=== PATIENT | male | born 1985 | race Caucasian/White ===

== ENCOUNTER 2017-01-02 19:06 | Emergency (ER) | payer MEDICARE, OTHER ==
[2017-01-02 19:30] VITALS: BP 136/86; PULSE 85; RESP 18; TEMP 97.2
[2017-01-02] MEDS ORDERED: DIPH,PERTUS(ACELL)TETVAC-LF 0.5 ML VIAL IM ONE (19:39)
--- NOTE | 2017-01-02 20:09 | ED ---
Wound/Laceration HPI - General Chief Complaint: Wound/Laceration Stated Complaint: laceration Time Seen by Provider: 01/02/17 19:33 Source: patient, RN notes reviewed Mode of arrival: ambulatory Limitations: no limitations - History of Present Illness Initial Comments: Patient is a 31-year-old male presents to the emergency room for evaluation of left thumb laceration. Patient states he was chopping wood with an ax and accidentally cut his finger. Patient denies wearing gloves. Patient states she 's not sure in his last tetanus vaccine was. Patient states having 7 out of 10 pain at the laceration site. Patient denies being on any blood thinners. Patient denies any other injuries during incident. Patient has a numbness or tingling the tip of his finger. Patient states he feels full range of motion of his thumb. - Related Data Home Medications Medication Instructions Recorded Confirmed Omeprazole [PriLOSEC] 20 mg PO DAILY 05/14/15 08/09/16 QUEtiapine FUMARATE 200 mg PO HS 05/14/15 08/09/16 Sertraline [Zoloft] 100 mg PO DAILY 05/14/15 08/09/16 carBAMazepine [Carbatrol] 200 mg PO HS 05/14/15 08/09/16 Gabapentin [Neurontin] 200 mg PO BID@0900,2100 12/23/15 08/09/16 Gabapentin [Neurontin] 100 mg PO DAILY@1400 04/21/16 08/09/16 Hydrochlorothiazide [Hydrodiuril] 50 mg PO DAILY 04/21/16 08/09/16 Methocarbamol [Robaxin] 500 mg PO TID 04/21/16 08/09/16 Previous Rx's Medication Instructions Recorded Diazepam [Valium] 5 mg PO BID #10 tab 08/13/15 Hydrocodone/Acetaminophen [Wing 1 tab PO Q6HR PRN #20 tab 07/25/16 5-325] Indomethacin [Indocin] 50 mg PO TID #30 capsule 07/25/16 HYDROcodone/APAP 5-325MG [Wing 1 - 2 tab PO Q4H PRN #20 tab 08/09/16 5-325] Indomethacin [Indocin] 50 mg PO TID #30 capsule 08/09/16 predniSONE 50 mg PO DAILY #7 tab 08/09/16 Allergies Allergy/AdvReac Type Severity Reaction Status Date / Time No Known Allergies Allergy Verified 01/02/17 19:30 Review of Systems ROS Statement: Those systems with pertinent positive or pertinent negative responses have been documented in the HPI. ROS Other: All systems not noted in ROS Statement are negative. Past Medical History Past Medical History: Hypertension, Seizure Disorder Additional Past Medical History / Comment(s): TRAUMATIC BRAIN INJURY; "Heart Arrhythmia - skips beats"; Nerve damage - left hand and leg. History of Any Multi-Drug Resistant Organisms: MRSA Date of last positivie culture/infection: 2010 MDRO Source:: RIGHT TOE Past Surgical History: No Surgical Hx Reported Past Psychological History: PTSD Smoking Status: Former smoker Past Alcohol Use History: None Reported Past Drug Use History: None Reported General Exam - General Exam Comments Initial Comments: Sitting in exam room in no acute distress. Limitations: no limitations General appearance: alert, in no apparent distress Head exam: Present: atraumatic, normocephalic, normal inspection Eye exam: Present: normal appearance ENT exam: Present: normal exam Neck exam: Present: normal inspection Respiratory exam: Absent: respiratory distress Left Hand Wrist exam: Present: full ROM, laceration (2 cm laceration on the lateral portion of the distal phalanx ) Neuro motor exam: Present: wrist extension intact, thumb opposition intact, thumb IP flexion intact, thumb adduction intact, fingers 2-5 abduction intact Vascular: Present: normal capillary refill (Capillary refill less than 2 seconds ), radial pulse (2+), ulnar pulse (2+) Back exam: Present: normal inspection Neurological exam: Present: alert, oriented X3, CN II-XII intact, normal gait Psychiatric exam: Present: normal affect, normal mood Skin exam: Present: warm, dry, normal color. Absent: rash Course Vital Signs 01/02/17 19:25 Temperature 97.2 F L Pulse Rate 85 Respiratory 18 Rate Blood Pressure 136/86 O2 Sat by Pulse 95 Oximetry Procedures - Laceration Laceration #1 Consent Obtained: verbal consent Indication: laceration Site: other (left thumb) Size (cm): 2 Description: linear, flap Depth: simple, single layer Anesthetic Used: lidocaine 1% Anesthesia Technique: nerve block Amount (mls): 3 Pre-repair: irrigated extensively Type of Sutures: nylon Size of Sutures: 5-0 Number of Sutures: 8 Technique: simple, interrupted Patient Tolerated Procedure: well, no complications Medical Decision Making - Medical Decision Making Patient is a 31-year-old male presents emergency room for evaluation of left thumb laceration. Laceration repaired with sutures. Patient was updated on his tetanus vaccine. Advised patient to return in 10-12 days for suture removal. Patient states he understands everything that was discussed with him. Return parameters discussed. Case discussed with Dr. Márquez. - Radiology Data Radiology results: report reviewed, image reviewed Disposition Clinical Impression: Finger laceration Disposition: HOME SELF-CARE Condition: Good Instructions: Care For Your Stitches (ED), Laceration (ED) Additional Instructions: Keep suture area clean and dry. Clean suture area with a damp cloth. Take Tylenol or Motrin as needed for pain. Please return in 10-12 days for suture removal. Please follow up with primary care provider in 1-2 days. If any new symptom arises or symptoms worsen, return to ER as soon as possible. Referrals: Nadeem Matson MD [Primary Care Provider] - 1-2 days Time of Disposition: 21:37
--- NOTE | 2017-01-02 20:20 | XR ---
EXAMINATION TYPE: XR finger LT DATE OF EXAM: 01/02/2017 8:15 PM COMPARISON: NONE HISTORY: Pain and laceration TECHNIQUE: 3 views FINDINGS: I see no fracture nor dislocation. Joint spaces are fairly normal. There is no sign of a fo reign body. IMPRESSION: Negative left thumb exam.
[2017-01-02] MEDS ORDERED: Acetaminophen-Codeine 300-30mg TAB PO STA (21:38)
== END 2017-01-02 21:55 | disposition home or self-care (01) ==
LOC: EC 19:06
DX: S61.012A Laceration without foreign body of left thumb without damage to nail, initial encounter (principal); I10 Essential (primary) hypertension; F43.10 Post-traumatic stress disorder, unspecified; G40.909 Epilepsy, unspecified, not intractable, without status epilepticus; Z87.891 Personal history of nicotine dependence; Z79.899 Other long term (current) drug therapy; Z23 Encounter for immunization; W27.0XXA Contact with workbench tool, initial encounter; Y93.89 Activity, other specified
CPT/HCPCS: 12001; 90471; 90715; 99282

== ENCOUNTER 2017-01-18 23:05 | Emergency (ER) | payer MEDICARE, OTHER ==
[2017-01-18 23:13] VITALS: BP 141/84; PULSE 68; RESP 18; TEMP 97
--- NOTE | 2017-01-18 23:57 | ED ---
General Adult HPI - General Chief complaint: Burn/Smoke Inhalation Stated complaint: L Wrist Burn Time Seen by Provider: 01/18/17 23:36 Source: patient Mode of arrival: ambulatory Limitations: no limitations - History of Present Illness Initial comments: This patient is a 31-year-old man who has 2 complaints. The patient's first complaint is that he has sustained a burn to his left forearm. This occurred 2 days ago while he was working on an automobile and touched warm pipe. Patient also requests that the sutures in his left thumb be removed. These were placed here on January 02. He denies any complications related to wound healing. He states that his tetanus shot is up-to-date. Onset/Timin -: days(s) Location: upper extremity Quality: burning Consistency: now resolved Improves with: none Worsens with: none Associated Symptoms: denies other symptoms - Related Data Home Medications Medication Instructions Recorded Confirmed Omeprazole [PriLOSEC] 20 mg PO DAILY 05/14/15 01/18/17 Sertraline [Zoloft] 150 mg PO DAILY 05/14/15 01/18/17 carBAMazepine [Carbatrol] 200 mg PO HS 05/14/15 01/18/17 Gabapentin [Neurontin] 200 mg PO BID@0900,2100 12/23/15 01/18/17 Gabapentin [Neurontin] 100 mg PO DAILY@1400 04/21/16 01/18/17 Methocarbamol [Robaxin] 500 mg PO TID 04/21/16 01/18/17 Lisinopril [Zestril] 10 mg PO DAILY 01/18/17 01/18/17 QUEtiapine FUMARATE [SEROquel] 300 mg PO HS 01/18/17 01/18/17 Allergies Allergy/AdvReac Type Severity Reaction Status Date / Time No Known Allergies Allergy Verified 01/18/17 23:31 Review of Systems ROS Statement: Those systems with pertinent positive or pertinent negative responses have been documented in the HPI. ROS Other: All systems not noted in ROS Statement are negative. Constitutional: Denies: fever, chills Skin: Reports: as per HPI, lesions Neurological: Denies: numbness, paresthesias Past Medical History Past Medical History: Hypertension, Seizure Disorder Additional Past Medical History / Comment(s): TRAUMATIC BRAIN INJURY; "Heart Arrhythmia - skips beats"; Nerve damage - left hand and leg. History of Any Multi-Drug Resistant Organisms: MRSA Date of last positivie culture/infection: 2010 MDRO Source:: RIGHT TOE Past Surgical History: No Surgical Hx Reported Past Psychological History: PTSD Smoking Status: Former smoker Past Alcohol Use History: None Reported Past Drug Use History: None Reported General Exam Limitations: no limitations General appearance: alert, in no apparent distress Head exam: Present: atraumatic, normocephalic Cardiovascular Exam: Present: other (Normal capillary refill to the left upper extremity) Extremities exam: Present: full ROM, normal capillary refill, other (The patient has laceration to the left thumb which is healing without evidence of infection. There is no abnormal erythema, warmth, or purulent drainage. There is an approximately 2 cm x 4 cm burn to the palmar aspect of the left wrist. There is an eschar. There is no abnormal erythema or warmth.). Absent: tenderness Neurological exam: Absent: motor sensory deficit Skin exam: Present: warm, dry, intact, normal color, other (As above) Course Vital Signs 01/18/17 23:10 Temperature 97 F L Pulse Rate 68 Respiratory 18 Rate Blood Pressure 141/84 O2 Sat by Pulse 95 Oximetry Medical Decision Making - Medical Decision Making Sutures removed by myself without complication. Burn care discussed, including signs and symptoms of secondary infection and also appropriate follow-up and return parameters. Disposition Clinical Impression: Encounter for removal of sutures, Burn of forearm Disposition: HOME SELF-CARE Condition: Good Instructions: Second Degree Burn (ED) Referrals: Nadeem Matson MD [Primary Care Provider] - 1-2 days
== END 2017-01-19 00:02 | disposition home or self-care (01) ==
LOC: EC 23:05
DX: T23.072A Burn of unspecified degree of left wrist, initial encounter (principal); Z48.02 Encounter for removal of sutures; S61.012D Laceration without foreign body of left thumb without damage to nail, subsequent encounter; I10 Essential (primary) hypertension; G40.909 Epilepsy, unspecified, not intractable, without status epilepticus; F43.10 Post-traumatic stress disorder, unspecified; Z87.891 Personal history of nicotine dependence; Z79.899 Other long term (current) drug therapy; Z87.820 Personal history of traumatic brain injury; Z86.69 Personal history of other diseases of the nervous system and sense organs; X18.XXXA Contact with other hot metals, initial encounter
CPT/HCPCS: 99282

== ENCOUNTER 2017-10-07 20:01 | Emergency (ER) | payer MEDICARE, OTHER ==
[2017-10-07 20:09] VITALS: BP 137/76; PULSE 76; RESP 18; TEMP 98.5
[2017-10-07] MEDS ORDERED: QUEtiapine 100 MG TAB PO STA (20:31)
--- NOTE | 2017-10-07 20:57 | ED ---
Recheck HPI - General Chief Complaint: Recheck/Abnormal Lab/Rx Stated Complaint: Med refill Time Seen by Provider: 10/07/17 20:31 Source: patient, RN notes reviewed, old records reviewed Mode of arrival: ambulatory Limitations: no limitations - History of Present Illness Initial Comments: 31-year-old male presents today needing a refill of his Seroquel. [facility] were [facility] to his house but over the holiday he's not able to get them. Patient reports that he will not have his Seroquel for his night terrors for the next week. Patient denies any withdrawal symptoms. He reports that he is had them in the past when you cannot take his medication so we came to [facility] today to get refilled Patient denies vision changes, chest pain, abodminal pain, nausea vomiting, headache, urinary symptoms or changes in bowel habits. - Related Data Home Medications Medication Instructions Recorded Confirmed Omeprazole [PriLOSEC] 20 mg PO DAILY 05/14/15 01/18/17 Sertraline [Zoloft] 150 mg PO DAILY 05/14/15 01/18/17 carBAMazepine [Carbatrol] 200 mg PO HS 05/14/15 01/18/17 Gabapentin [Neurontin] 200 mg PO BID@0900,2100 12/23/15 01/18/17 Gabapentin [Neurontin] 100 mg PO DAILY@1400 04/21/16 01/18/17 Methocarbamol [Robaxin] 500 mg PO TID 04/21/16 01/18/17 Lisinopril [Zestril] 10 mg PO DAILY 01/18/17 01/18/17 QUEtiapine FUMARATE [SEROquel] 300 mg PO HS 01/18/17 01/18/17 Previous Rx's Medication Instructions Recorded QUEtiapine [SEROquel] 300 mg PO DAILY #30 tablet 10/07/17 Allergies Allergy/AdvReac Type Severity Reaction Status Date / Time No Known Allergies Allergy Verified 10/07/17 20:09 Review of Systems ROS Statement: Those systems with pertinent positive or pertinent negative responses have been documented in the HPI. ROS Other: All systems not noted in ROS Statement are negative. Past Medical History Past Medical History: Hypertension, Seizure Disorder Additional Past Medical History / Comment(s): TRAUMATIC BRAIN INJURY; "Heart Arrhythmia - skips beats"; Nerve damage - left hand and leg. History of Any Multi-Drug Resistant Organisms: MRSA Date of last positivie culture/infection: 2010 MDRO Source:: RIGHT TOE Past Surgical History: No Surgical Hx Reported Past Psychological History: PTSD Smoking Status: Former smoker Past Alcohol Use History: None Reported Past Drug Use History: None Reported General Exam - General Exam Comments Initial Comments: 31 year old male, no distress. Limitations: no limitations General appearance: alert, in no apparent distress Head exam: Present: atraumatic, normocephalic, normal inspection Eye exam: Present: normal appearance, PERRL, EOMI. Absent: scleral icterus, conjunctival injection, periorbital swelling ENT exam: Present: normal exam, mucous membranes moist Neck exam: Present: normal inspection. Absent: tenderness, meningismus, lymphadenopathy Respiratory exam: Present: normal lung sounds bilaterally. Absent: respiratory distress, wheezes, rales, rhonchi, stridor Cardiovascular Exam: Present: regular rate, normal rhythm, normal heart sounds. Absent: systolic murmur, diastolic murmur, rubs, gallop, clicks GI/Abdominal exam: Present: soft, normal bowel sounds. Absent: distended, tenderness, guarding, rebound, rigid Extremities exam: Present: normal inspection, full ROM, normal capillary refill. Absent: tenderness, pedal edema, joint swelling, calf tenderness Back exam: Present: normal inspection Neurological exam: Present: alert, oriented X3, CN II-XII intact Psychiatric exam: Present: normal affect, normal mood Skin exam: Present: warm, dry, intact, normal color. Absent: rash Course Vital Signs 10/07/17 20:05 Temperature 98.5 F Pulse Rate 76 Respiratory 18 Rate Blood Pressure 137/76 O2 Sat by Pulse 97 Oximetry Medical Decision Making - Medical Decision Making This is a 31 year old male needing refill of seroquel until [facility]. He has this for night terror. He has enough of his other medication. Patient will be given refill for one week. Given dose in ED today. Discussed follow up with PCP and return parameters discussed. Disposition Clinical Impression: Medication refill Disposition: HOME SELF-CARE Condition: Good Instructions: Medicine Refill (ED) Additional Instructions: Patient is to follow-up with your primary care provider, and the [facility] for [facility]. Return to emergency department if any alarming signs or symptoms occur. Have a Qiana Bishop! Prescriptions: QUEtiapine [SEROquel] 300 mg PO DAILY #30 tablet Referrals: Nadeem Matson MD [Primary Care Provider] - 1-2 days Time of Disposition: 20:55
--- NOTE | 2017-10-09 03:04 | CDI ---
Documentation Clarification OP Dear BEATRICE Yusuf: Please do addendum to ED report for HPI , Physical exam and MDM. Thank you, Brianne Warren Security Guard Supervisor If you have any question, Please contact manager purchasing at [phone] [facility]
== END 2017-10-07 21:01 | disposition home or self-care (01) ==
LOC: EC 20:01
DX: Z76.0 Encounter for issue of repeat prescription (principal); I10 Essential (primary) hypertension; G40.909 Epilepsy, unspecified, not intractable, without status epilepticus; F43.10 Post-traumatic stress disorder, unspecified; Z86.14 Personal history of Methicillin resistant Staphylococcus aureus infection; Z87.891 Personal history of nicotine dependence; Z79.899 Other long term (current) drug therapy
CPT/HCPCS: 99282

== ENCOUNTER → 2018-03-13 | Outpatient (CLI) | payer OTHER ==
--- NOTE | 2018-03-13 15:12 | MR ---
EXAMINATION TYPE: MR lumbar spine wo con DATE OF EXAM: 03/13/2018 COMPARISON: Lumbar spine x-ray August 05, 2015 HISTORY: Low back pain per order. Chronic pain for 4 years causing pain into both thighs with history of accident or trauma per patient. TECHNIQUE: Multiplanar, multisequence imaging of the lumbar spine is performed without IV contrast. FINDINGS: Sagittal images of the lumbar spine show vertebral body heights and alignment to appear sat isfactory. Some disc desiccation L3-L4 through L5-S1 levels is present. The intervertebral discs othe rwise demonstrate normal heights and hydration. No suspicious posterior disc herniations are seen on sagittal images. The conus medullaris is normal in position and signal ending inferior L1 level. The bone marrow signal intensity is within normal limits. Small hemangioma left L4 vertebral body level is noted sagittal image 3. Axial images show the T12-L1, L1-L2, and L2-L3 levels to appear within normal limits. Axial images at L3-L4 level show mild broad based posterior disc protrusion minimally effacing anteri or thecal sac, bilateral neural foramina are patent. Axial images at L4-L5 level show broad disc bulge with right paracentral disc protrusion component ef facing anterior thecal sac and axial image 10. Bilateral neural foramina are patent. Axial images at L5-S1 level shows small central disc protrusion but spinal canal is minimally effaced anteriorly. Bilateral neural foramina are patent. No suspicious retroperitoneal findings are seen. IMPRESSION: Multilevel mild degenerative changes in the mid to lower lumbar spine as detailed above
== END | disposition home or self-care (01) ==
LOC: RADMRIMAIN 13:47
PROVIDERS: ATTEND Physician Assistant Medical
DX: M47.816 Spondylosis without myelopathy or radiculopathy, lumbar region (principal)
CPT/HCPCS: 72148

== ENCOUNTER 2018-07-16 16:31 | Emergency (ER) | payer MEDICARE, OTHER ==
[2018-07-16 16:51] VITALS: BP 123/84; PULSE 68; RESP 18; TEMP 98.1
[2018-07-16] MEDS ORDERED: ACETAMINOPHEN TAB 500 MG TAB PO STA (17:24)
--- NOTE | 2018-07-16 17:29 | ED ---
General Adult HPI - General Chief complaint: Extremity Injury, Lower Stated complaint: Finger injury Time Seen by Provider: 07/16/18 17:03 Source: patient Mode of arrival: ambulatory Limitations: no limitations - History of Present Illness Initial comments: 32-year-old male patient presents to the emergency department today for evaluation of pain and swelling to the left index finger. Patient states Monday afternoon he was lifting a large whiteboard out of the truck when the wind grabbed it causing him to fall landing on his finger. Patient states that he did sustain lacerations, he did clean the lacerations and dressed the wound. Patient states over the weekend that pain began to swell and he has had increased pain. Denies any difficulty with range of motion. Denies any numbness or tingling to the finger. Denies any previous injury to the finger. Denies any redness or drainage from the wounds. Patient denies any headache, neck pain, back pain, chest pain, shortness of breath, dizziness, weakness, abdominal pain, nausea, vomiting, or difficulties with bowel movements or urination. - Related Data Home Medications Medication Instructions Recorded Confirmed Omeprazole [PriLOSEC] 20 mg PO DAILY 05/14/15 07/16/18 Sertraline [Zoloft] 150 mg PO DAILY 05/14/15 07/16/18 carBAMazepine [Carbatrol] 200 mg PO HS 05/14/15 07/16/18 Gabapentin [Neurontin] 200 mg PO TID 12/23/15 07/16/18 Methocarbamol [Robaxin] 500 mg PO TID 04/21/16 07/16/18 Lisinopril [Zestril] 10 mg PO DAILY 01/18/17 07/16/18 QUEtiapine FUMARATE [SEROquel] 300 mg PO HS 01/18/17 07/16/18 Cholecalciferol [Vitamin D3] 1,000 unit PO BID 07/16/18 07/16/18 Previous Rx's Medication Instructions Recorded Cephalexin [Keflex] 500 mg PO Q6H #28 cap 07/16/18 Allergies Allergy/AdvReac Type Severity Reaction Status Date / Time No Known Allergies Allergy Verified 07/16/18 17:01 Review of Systems ROS Statement: Those systems with pertinent positive or pertinent negative responses have been documented in the HPI. ROS Other: All systems not noted in ROS Statement are negative. Past Medical History Past Medical History: Hypertension, Seizure Disorder Additional Past Medical History / Comment(s): TRAUMATIC BRAIN INJURY; "Heart Arrhythmia - skips beats"; Nerve damage - left hand and leg. History of Any Multi-Drug Resistant Organisms: MRSA Date of last positivie culture/infection: 2010 MDRO Source:: RIGHT TOE Past Surgical History: No Surgical Hx Reported Past Psychological History: PTSD Smoking Status: Former smoker Past Alcohol Use History: None Reported Past Drug Use History: None Reported General Exam Limitations: no limitations General appearance: alert, in no apparent distress, other (This is a well- developed, well-nourished adult male patient in no acute distress. Vital signs upon presentation are temperature 98.1F, pulse 68, respirations 18, blood pressure 123/84, pulse ox 99% on room air.) Eye exam: Present: normal appearance, PERRL, EOMI. Absent: scleral icterus, conjunctival injection, periorbital swelling ENT exam: Present: normal exam, normal oropharynx, mucous membranes moist Respiratory exam: Present: normal lung sounds bilaterally. Absent: respiratory distress, wheezes, rales, rhonchi, stridor Cardiovascular Exam: Present: regular rate, normal rhythm, normal heart sounds. Absent: systolic murmur, diastolic murmur, rubs, gallop, clicks Extremities exam: Present: full ROM, tenderness (Tenderness over the entirety of the left index finger), normal capillary refill, other (Patient has 1.5 cm laceration to the dorsal aspect of left index finger. He has 1 cm laceration to the palmar aspect of the left index finger. He has circumferential swelling to the entirety of the left index finger. He has full range of motion. Good strength against resistance. Patient does exhibit surrounding erythema to the palmar wound. No drainage from the wounds. Remainder of skin is pink, warm, and dry. Cap refills less than 3 seconds. Radial pulses 2+ and equal bilaterally.). Absent: normal inspection, pedal edema, joint swelling, calf tenderness Neurological exam: Present: alert, oriented X3, CN II-XII intact Psychiatric exam: Present: normal affect, normal mood Skin exam: Present: warm, dry, intact, normal color. Absent: rash Course Vital Signs 07/16/18 16:48 Temperature 98.1 F Pulse Rate 68 Respiratory 18 Rate Blood Pressure 123/84 O2 Sat by Pulse 99 Oximetry Medical Decision Making - Medical Decision Making 32-year-old male patient presented to the emergency department today for evaluation of finger injury. Physical examination did reveal diffuse soft tissue swelling as well as lacerations to the left index finger. The palmar wound did reveal some mild surrounding erythema with no evidence of drainage. There is no streaking or circumferential erythema. X-ray was negative for any acute fractures or dislocations. We'll start patient on Keflex to prevent any infection. He is instructed to follow-up with his primary care physician for recheck in 1-2 days. Return parameters discussed in detail. He verbalizes understanding and agrees with this plan. - Radiology Data Radiology results: report reviewed, image reviewed 3 views of the left second finger acquired. There is no fracture or dislocation seen. Joint spaces are preserved. Mild to moderate diffuse soft tissue swelling is present. No radiodense foreign body is noted. Impression by Dr. Jo. Disposition Clinical Impression: Wound infection, Finger contusion Disposition: HOME SELF-CARE Condition: Good Instructions: Cellulitis (ED), Contusion in Adults (ED) Additional Instructions: Complete antibiotic prescription and full. Follow-up through primary care physician for recheck in 1-2 days. Return here immediately for any new, worsening, or concerning symptoms. Prescriptions: Cephalexin [Keflex] 500 mg PO Q6H #28 cap Is patient prescribed a controlled substance at d/c from ED?: No Referrals: Nadeem Matson MD [Primary Care Provider] - 1-2 days Time of Disposition: 18:28
--- NOTE | 2018-07-16 17:49 | XR ---
EXAMINATION TYPE: XR finger LT DATE OF EXAM: 07/16/2018 COMPARISON: NONE HISTORY: Laceration injury with pain. TECHNIQUE: 3 views left second finger are acquired. FINDINGS: No acute fracture or dislocation is seen. The joint spaces are preserved. [id number] diffuse soft tissue swelling is present. No radiodense foreign body is noted. IMPRESSION: As above
== END 2018-07-16 18:33 | disposition home or self-care (01) ==
LOC: EC 16:31
DX: S61.211A Laceration without foreign body of left index finger without damage to nail, initial encounter (principal); L08.9 Local infection of the skin and subcutaneous tissue, unspecified; I10 Essential (primary) hypertension; F43.10 Post-traumatic stress disorder, unspecified; G40.909 Epilepsy, unspecified, not intractable, without status epilepticus; Z86.14 Personal history of Methicillin resistant Staphylococcus aureus infection; Z87.820 Personal history of traumatic brain injury; Z87.891 Personal history of nicotine dependence; Z79.899 Other long term (current) drug therapy; W20.8XXA Other cause of strike by thrown, projected or falling object, initial encounter; Y93.89 Activity, other specified
CPT/HCPCS: 99283

== ENCOUNTER → 2018-09-14 | Outpatient (CLI) | payer MEDICARE, OTHER ==
--- NOTE | 2018-09-14 11:08 | US ---
EXAMINATION TYPE: US kidneys/renal and bladder DATE OF EXAM: 09/14/2018 COMPARISON: NONE CLINICAL HISTORY: R31.9 Hematuria. Pt states gross hematuria/ recent UTI EXAM MEASUREMENTS: Right Kidney: 13.6 x 5.2 x 5.6 cm Left Kidney: 11.8 x 5.8 x 5.3 cm Post Void Residual Volume: 2.6 mL Right Kidney: Possible double collecting system, otherwise appeared wnl Left Kidney: Appeared wnl Bladder: wnl Bilateral Jets seen: No Normal Post Void Residual: Yes There is no evidence for hydronephrosis at this point in time. No nephrolithiasis is seen. No mae s are identified. The urinary bladder is anechoic. Bilateral ureteral jets are seen. IMPRESSION: No significant abnormality appreciated.
== END | disposition home or self-care (01) ==
LOC: RADUSWWP 10:41
PROVIDERS: ATTEND Family Medicine
DX: N39.0 Urinary tract infection, site not specified (principal)
CPT/HCPCS: 76770

== ENCOUNTER 2019-03-18 15:05 | Emergency (ER) | payer MEDICARE ==
[2019-03-18 16:06] VITALS: RESP 16; TEMP 97.3
--- NOTE | 2019-03-18 18:50 | ED ---
General Adult HPI - General Chief complaint: Recheck/Abnormal Lab/Rx Stated complaint: Med refill, withdrawls Time Seen by Provider: 03/18/19 17:10 Source: patient Mode of arrival: ambulatory Limitations: no limitations - History of Present Illness Initial comments: Patient is a 33-year-old male presents emergency Department seroquel withdrawl. Patient reports taking multiple psychiatric medications including swelling since 2008. Patient reports that he forgot to refill the prescription for seroquel and he will not be filled for another 10 days. Patient reports insomnia and nausea with one episode of vomiting. Patient denies hematemesis, diarrhea, chest tightness, chest palpitations, shortness of breath. Patient denies parkinsonian symptoms such as tremors and rigidity. Patient is asking for seroquel prescription until he is able to fill the original in 10 days. Patient denies abdominal pain, fever, headache, lightheadedness, dizziness. - Related Data Home Medications Medication Instructions Recorded Confirmed Omeprazole [PriLOSEC] 20 mg PO DAILY 05/14/15 07/16/18 Sertraline [Zoloft] 150 mg PO DAILY 05/14/15 07/16/18 carBAMazepine [Carbatrol] 200 mg PO HS 05/14/15 07/16/18 Gabapentin [Neurontin] 200 mg PO TID 12/23/15 07/16/18 Methocarbamol [Robaxin] 500 mg PO TID 04/21/16 07/16/18 Lisinopril [Zestril] 10 mg PO DAILY 01/18/17 07/16/18 QUEtiapine FUMARATE [SEROquel] 300 mg PO HS 01/18/17 07/16/18 Cholecalciferol [Vitamin D3] 1,000 unit PO BID 07/16/18 07/16/18 Previous Rx's Medication Instructions Recorded Cephalexin [Keflex] 500 mg PO Q6H #28 cap 07/16/18 QUEtiapine FUMARATE [SEROquel] 300 mg PO HS 10 Days #10 tab 03/18/19 Allergies Allergy/AdvReac Type Severity Reaction Status Date / Time No Known Allergies Allergy Verified 03/18/19 16:01 Review of Systems ROS Statement: Those systems with pertinent positive or pertinent negative responses have been documented in the HPI. ROS Other: All systems not noted in ROS Statement are negative. Past Medical History Past Medical History: Hypertension, Seizure Disorder Additional Past Medical History / Comment(s): TRAUMATIC BRAIN INJURY; "Heart Arrhythmia - skips beats"; Nerve damage - left hand and leg. History of Any Multi-Drug Resistant Organisms: MRSA Date of last positivie culture/infection: 2010 MDRO Source:: RIGHT TOE Past Surgical History: No Surgical Hx Reported Past Psychological History: PTSD Smoking Status: Former smoker Past Alcohol Use History: None Reported Past Drug Use History: None Reported General Exam Limitations: no limitations General appearance: alert, in no apparent distress Head exam: Present: atraumatic, normocephalic, normal inspection Eye exam: Present: normal appearance, PERRL, EOMI Pupils: Present: normal accommodation ENT exam: Present: normal exam, normal oropharynx, mucous membranes moist, TM's normal bilaterally Neck exam: Present: normal inspection Respiratory exam: Present: normal lung sounds bilaterally Cardiovascular Exam: Present: regular rate GI/Abdominal exam: Present: soft. Absent: distended, tenderness, guarding Extremities exam: Present: normal inspection, full ROM Back exam: Present: normal inspection, full ROM Neurological exam: Present: alert, oriented X3 Psychiatric exam: Present: normal affect, normal mood Skin exam: Present: warm, intact, normal color Course Vital Signs 03/18/19 16:02 Temperature 97.3 F L Pulse Rate 57 L Respiratory 16 Rate Blood Pressure 130/82 O2 Sat by Pulse 99 Oximetry Medical Decision Making - Medical Decision Making Patient is a 33-year-old male presenting to emergency department for seroquel. Patient will be discharged with a 10 day course of Seroquel until he is able to refill his original prescription. Patient advised to follow-up with the [facility]. Patient advised to return to emergency department if symptoms worsen. Case discussed with physician. Disposition Clinical Impression: Encounter for medication refill Disposition: HOME SELF-CARE Condition: Stable Additional Instructions: Please take prescribed medication as directed. Return to emergency department if symptoms worsen. Please follow up primary care. Is patient prescribed a controlled substance at d/c from ED?: No Referrals: [facility],Clinic [Primary Care Provider] - 1-2 days Time of Disposition: 18:53
[2019-03-18 19:08] VITALS: BP 128/87; PULSE 63
== END 2019-03-18 19:07 | disposition home or self-care (01) ==
LOC: EC 15:05
DX: Z76.0 Encounter for issue of repeat prescription (principal); G47.00 Insomnia, unspecified; R11.2 Nausea with vomiting, unspecified; I10 Essential (primary) hypertension; G40.909 Epilepsy, unspecified, not intractable, without status epilepticus; Z87.891 Personal history of nicotine dependence; Z79.899 Other long term (current) drug therapy; Z86.14 Personal history of Methicillin resistant Staphylococcus aureus infection
CPT/HCPCS: 99281

== ENCOUNTER → 2020-03-24 | Outpatient (CLI) | payer OTHER ==
--- NOTE | 2020-03-24 14:09 | CT ---
EXAMINATION TYPE: CT abdomen pelvis wo/w con DATE OF EXAM: 03/24/2020 COMPARISON: Ultrasound 09/14/2018 HISTORY: Generalized pain with hematuria. CT DLP: 3592.7 mGycm Automated exposure control for dose reduction was used. CONTRAST: CT scan of the abdomen pelvis is performed with IV Contrast, patient injected with 100 mL of Isovue 3 00. FINDINGS- LUNG BASES- No significant abnormality is appreciated. LIVER/GB-cholelithiasis. PANCREAS- No gross abnormality is seen. SPLEEN- No gross abnormality is seen. ADRENALS- No gross abnormality is seen. KIDNEYS- no hydronephrosis or nephrolithiasis. No enhancing mass.. BOWEL- no bowel dilatation. Normal appendix. LYMPH NODES- No greater than 1cm abdominal or pelvic lymph nodes areappreciated. OSSEOUS STRUCTURES-hypertrophic and degenerative change of the spine. OTHER- small fat-containing periumbilical hernia noted . Mild concentric bladder wall thickening cor relate with urinalysis for cystitis. IMPRESSION- 1. No hydronephrosis or nephrolithiasis. There is mild concentric bladder wall thickening correlate w ith urinalysis to exclude cystitis. 2. Cholelithiasis
== END | disposition home or self-care (01) ==
LOC: RADCTMAIN 11:19
DX: N32.89 Other specified disorders of bladder (principal); K80.20 Calculus of gallbladder without cholecystitis without obstruction
CPT/HCPCS: 74178; Q9967

== ENCOUNTER 2020-09-09 18:24 | Emergency (ER) | payer OTHER ==
[2020-09-09 18:48] VITALS: BP 135/94; PULSE 64; RESP 18; TEMP 98.7
[2020-09-09] MEDS ORDERED: QUEtiapine 100 MG TAB PO STA (20:43)
--- NOTE | 2020-09-09 20:48 | ED ---
Recheck HPI - General Chief Complaint: Recheck/Abnormal Lab/Rx Stated Complaint: med refill Time Seen by Provider: 09/09/20 19:49 Source: patient Mode of arrival: ambulatory Limitations: no limitations - History of Present Illness Initial Comments: 34-year-old male patient presents to the emergency department today requesting Seroquel. Patient states he has taken the medication for the last 8 years. States he had a mixup with his insurance and pharmacies and so he is unable to get the prescription filled. States he is able to see his doctor on Monday but does not have any of the dosages until then. He believes he is withdrawing from the medication as he has had some nausea and vomiting. He denies any fever or chills. Denies abdominal pain. Patient states he has had these symptoms in the past when withdrawing from Seroquel. States that he does not want any laboratory evaluations or medication for nausea control he would just like to ge t his Seroquel and be discharged. - Related Data Home Medications Medication Instructions Recorded Confirmed RX: Omeprazole [PriLOSEC] 20 mg PO DAILY 05/14/15 07/16/18 RX: Sertraline [Zoloft] 150 mg PO DAILY 05/14/15 07/16/18 RX: carBAMazepine [Carbatrol] 200 mg PO HS 05/14/15 07/16/18 Gabapentin [Neurontin] 200 mg PO TID 12/23/15 07/16/18 methocarbamoL [Robaxin] 500 mg PO TID 04/21/16 07/16/18 QUEtiapine FUMARATE [SEROquel] 300 mg PO HS 01/18/17 07/16/18 lisinopriL [Zestril] 10 mg PO DAILY 01/18/17 07/16/18 Cholecalciferol [Vitamin D3] 1,000 unit PO BID 07/16/18 07/16/18 Previous Rx's Medication Instructions Recorded Cephalexin [Keflex] 500 mg PO Q6H #28 cap 07/16/18 QUEtiapine FUMARATE [SEROquel] 300 mg PO HS 10 Days #10 tab 03/18/19 QUEtiapine FUMARATE [SEROquel] 300 mg PO HS #5 tab 09/09/20 Allergies Allergy/AdvReac Type Severity Reaction Status Date / Time No Known Allergies Allergy Verified 03/18/19 16:01 Review of Systems ROS Statement: Those systems with pertinent positive or pertinent negative responses have been documented in the HPI. ROS Other: All systems not noted in ROS Statement are negative. Past Medical History Past Medical History: Hypertension, Seizure Disorder Additional Past Medical History / Comment(s): TRAUMATIC BRAIN INJURY; "Heart Arrhythmia - skips beats"; Nerve damage - left hand and leg. History of Any Multi-Drug Resistant Organisms: MRSA Date of last positivie culture/infection: 2010 MDRO Source:: RIGHT TOE Past Surgical History: No Surgical Hx Reported Past Psychological History: PTSD Smoking Status: Never smoker Past Alcohol Use History: None Reported Past Drug Use History: Marijuana General Exam Limitations: no limitations General appearance: alert, in no apparent distress, other (This is a well- developed, well-nourished adult male patient in no acute distress. Vital signs upon presentation are temperature 98.7F, pulse 64, respirations 18, blood pressure 135/94, pulse ox 98% on room air.) Eye exam: Present: normal appearance, PERRL, EOMI. Absent: scleral icterus, conjunctival injection, periorbital swelling ENT exam: Present: normal exam, normal oropharynx, mucous membranes moist Respiratory exam: Present: normal lung sounds bilaterally. Absent: respiratory distress, wheezes, rales, rhonchi, stridor Cardiovascular Exam: Present: regular rate, normal rhythm, normal heart sounds. Absent: systolic murmur, diastolic murmur, rubs, gallop, clicks GI/Abdominal exam: Present: soft, normal bowel sounds. Absent: distended, tenderness, guarding, rebound, rigid Neurological exam: Present: alert, oriented X3, CN II-XII intact Psychiatric exam: Present: normal affect, normal mood Skin exam: Present: warm, dry, intact, normal color. Absent: rash Course Vital Signs 09/09/20 18:45 Temperature 98.7 F Pulse Rate 64 Respiratory 18 Rate Blood Pressure 135/94 O2 Sat by Pulse 98 Oximetry Medical Decision Making - Medical Decision Making 34-year-old male patient presents to the emergency department today for dosage and prescription of Seroquel. States he is out until Monday. Physical examination is unremarkable. The patient was provided with a dose here and given a prescription. Patient was quite upset that we would not give him an additional dose to take at home tomorrow given that it is Thanksgiving and pharmacies will be closed. We did compromise and I sent to the prescription to a different pharmacy that would be open tonight. Patient is disgruntled but agrees with this plan. Disposition Clinical Impression: Medication refill Disposition: HOME SELF-CARE Condition: Good Instructions (If sedation given, give patient instructions): Medicine Refill (ED) Additional Instructions: Take medication as directed. Follow up with primary care physician for recheck in 1-2 days. Return to the emergency department immediately for any new, worsening, or concerning symptoms. Prescriptions: QUEtiapine FUMARATE [SEROquel] 300 mg PO HS #5 tab Is patient prescribed a controlled substance at d/c from ED?: No Referrals: [facility],Clinic [Primary Care Provider] - 1-2 days Time of Disposition: 20:48
== END 2020-09-09 21:13 | disposition home or self-care (01) ==
LOC: EC 18:24
DX: Z76.0 Encounter for issue of repeat prescription (principal); I10 Essential (primary) hypertension; G40.909 Epilepsy, unspecified, not intractable, without status epilepticus; F43.10 Post-traumatic stress disorder, unspecified; Z79.899 Other long term (current) drug therapy
CPT/HCPCS: 99281

== ENCOUNTER 2021-04-15 14:53 | Emergency (ER) | payer OTHER ==
[2021-04-15 14:59] VITALS: BP 125/77; PULSE 71; RESP 20; TEMP 97.6
[2021-04-15] MEDS ORDERED: LIDOCAINE 1% INJ 10MG/ML (20 ML MDV) SQ ONE (15:04)
--- NOTE | 2021-04-15 15:30 | ED ---
Wound/Laceration HPI - General Chief Complaint: Wound/Laceration Stated Complaint: L Arm Lac Time Seen by Provider: 04/15/21 14:56 Source: patient Mode of arrival: ambulatory Limitations: no limitations - History of Present Illness Initial Comments: 35-year-old male presents emergency Department with a chief complaint of a laceration to the left arm. Patient reports he was in his room when he fell and some of the tools landed on his arms. He states he lacerated the dorsal aspect of the left forearm. Patient reports minimal pain. His tetanus is up-to-date. Reports some bleeding which has since resolved. This occurred about 1 hours prior to arrival. He denies significant pain at the injured site. Denies any head injuries. Does report some abrasions on his back. Denies any other lacerations. - Related Data Home Medications Medication Instructions Recorded Confirmed Omeprazole [PriLOSEC] 20 mg PO DAILY 05/14/15 07/16/18 Sertraline [Zoloft] 150 mg PO DAILY 05/14/15 07/16/18 carBAMazepine [Carbatrol] 200 mg PO HS 05/14/15 07/16/18 Gabapentin [Neurontin] 200 mg PO TID 12/23/15 07/16/18 methocarbamoL [Robaxin] 500 mg PO TID 04/21/16 07/16/18 QUEtiapine FUMARATE [SEROquel] 300 mg PO HS 01/18/17 07/16/18 lisinopriL [Zestril] 10 mg PO DAILY 01/18/17 07/16/18 Cholecalciferol [Vitamin D3] 1,000 unit PO BID 07/16/18 07/16/18 Previous Rx's Medication Instructions Recorded Cephalexin [Keflex] 500 mg PO Q6H #28 cap 07/16/18 QUEtiapine FUMARATE [SEROquel] 300 mg PO HS 10 Days #10 tab 03/18/19 QUEtiapine FUMARATE [SEROquel] 300 mg PO HS #5 tab 09/09/20 Allergies Allergy/AdvReac Type Severity Reaction Status Date / Time No Known Allergies Allergy Verified 04/15/21 14:59 Review of Systems ROS Statement: Those systems with pertinent positive or pertinent negative responses have been documented in the HPI. ROS Other: All systems not noted in ROS Statement are negative. Past Medical History Past Medical History: Hypertension, Seizure Disorder Additional Past Medical History / Comment(s): TRAUMATIC BRAIN INJURY; "Heart Arrhythmia - skips beats"; Nerve damage - left hand and leg. History of Any Multi-Drug Resistant Organisms: MRSA Date of last positivie culture/infection: 2010 MDRO Source:: RIGHT TOE Past Surgical History: No Surgical Hx Reported Past Psychological History: PTSD Smoking Status: Never smoker Past Alcohol Use History: None Reported Past Drug Use History: Marijuana General Exam Limitations: no limitations General appearance: alert, in no apparent distress, obese Head exam: Present: atraumatic, normocephalic, normal inspection Eye exam: Present: normal appearance, PERRL, EOMI Pupils: Present: normal accommodation ENT exam: Present: normal exam, normal oropharynx, mucous membranes moist Neck exam: Present: normal inspection, full ROM. Absent: tenderness, lymphadenopathy Respiratory exam: Present: normal lung sounds bilaterally. Absent: respiratory distress, wheezes, rales, rhonchi, stridor Cardiovascular Exam: Present: regular rate, normal rhythm, normal heart sounds. Absent: systolic murmur GI/Abdominal exam: Present: soft. Absent: distended, tenderness, guarding, rebound Extremities exam: Present: full ROM, tenderness, normal capillary refill. Absent: normal inspection (5cm laceration on the dorsal aspect of the left forearm, superficial.), pedal edema, joint swelling, calf tenderness Back exam: Present: normal inspection (Multiple abrasions on the lower back), full ROM. Absent: tenderness, CVA tenderness (R), CVA tenderness (L) Neurological exam: Present: alert, oriented X3, normal gait Psychiatric exam: Present: normal affect, normal mood Skin exam: Present: warm, dry, intact, normal color Course Vital Signs 04/15/21 14:56 Temperature 97.6 F Pulse Rate 71 Respiratory 20 Rate Blood Pressure 125/77 O2 Sat by Pulse 97 Oximetry Medical Decision Making - Medical Decision Making 35-year-old male presents to emergency Department with the chief complaint laceration. Laceration site was thoroughly irrigated and repaired with 5 sutures. Patient tolerated procedure well. He also has some abrasions on his back secondary to the fall but no back pain or tenderness. Advised him to return for suture removal. Return parameters were discussed patient was upsetting agreeable. Case discussed with Dr. Huston. Disposition Clinical Impression: Laceration Disposition: HOME SELF-CARE Condition: Stable Instructions (If sedation given, give patient instructions): Care For Your Stitches (DC), Laceration (DC) Additional Instructions: Please return to the emergency room in 8-10 days to have sutures removed. Please watch for any signs of infection which may include increased pain, swelling, redness, fever or chills. Please return to emergency room for any signs of infection do occur. Please use clean soap and water over the area to prevent scabbing over your stitches. Please leave wound covered for the first 24-48 hours and then leave wound open to air. Please return to the emergency room for any other concerns. Is patient prescribed a controlled substance at d/c from ED?: No Referrals: [facility],Clinic [Primary Care Provider] - 1-2 days Time of Disposition: 15:30
== END 2021-04-15 15:50 | disposition home or self-care (01) ==
LOC: EC 14:53
DX: S41.112A Laceration without foreign body of left upper arm, initial encounter (principal); W18.30XA Fall on same level, unspecified, initial encounter; I10 Essential (primary) hypertension; G40.909 Epilepsy, unspecified, not intractable, without status epilepticus; F12.90 Cannabis use, unspecified, uncomplicated; S30.810A Abrasion of lower back and pelvis, initial encounter
CPT/HCPCS: 99282; 12002; 96372; J2001

== ENCOUNTER 2022-06-27 11:58 | Emergency (ER) | payer OTHER, MEDICARE ==
[2022-06-27 12:26] VITALS: BP 142/89; PULSE 77; RESP 16; TEMP 98.1
--- NOTE | 2022-06-27 12:37 | ED ---
General Adult HPI - General Chief complaint: Skin/Abscess/Foreign Body Stated complaint: Elbow pain Time Seen by Provider: 06/27/22 12:15 Source: patient, RN notes reviewed, old records reviewed Mode of arrival: ambulatory Limitations: no limitations - History of Present Illness Initial comments: This is a 36-year-old male presents emergency Department stating his left elbow started to get sore yesterday and mildly red they the redness is getting a little worse since a little more painful so he decided come in the emergency department to have it evaluated. Patient denies any injury to the area. Patient denies any fever chills per patient states the redness is continuing to just the posterior aspect of his elbow. Patient states he has no other symptoms at this time. - Related Data Home Medications Medication Instructions Recorded Confirmed Omeprazole [PriLOSEC] 20 mg PO DAILY 05/14/15 07/16/18 Sertraline [Zoloft] 150 mg PO DAILY 05/14/15 07/16/18 carBAMazepine [Carbatrol] 200 mg PO HS 05/14/15 07/16/18 Gabapentin [Neurontin] 200 mg PO TID 12/23/15 07/16/18 methocarbamoL [Robaxin] 500 mg PO TID 04/21/16 07/16/18 QUEtiapine FUMARATE [SEROquel] 300 mg PO HS 01/18/17 07/16/18 lisinopriL [Zestril] 10 mg PO DAILY 01/18/17 07/16/18 Cholecalciferol [Vitamin D3] 1,000 unit PO BID 07/16/18 07/16/18 Previous Rx's Medication Instructions Recorded Cephalexin [Keflex] 500 mg PO Q6H #28 cap 07/16/18 QUEtiapine FUMARATE [SEROquel] 300 mg PO HS 10 Days #10 tab 03/18/19 QUEtiapine FUMARATE [SEROquel] 300 mg PO HS #5 tab 09/09/20 Sulfamethox-Tmp 800-160Mg [Bactrim 1 each PO Q12HR #10 tab 06/27/22 DS 800-160 mg] Allergies Allergy/AdvReac Type Severity Reaction Status Date / Time No Known Allergies Allergy Verified 06/27/22 12:26 Review of Systems ROS Statement: Those systems with pertinent positive or pertinent negative responses have been documented in the HPI. ROS Other: All systems not noted in ROS Statement are negative. Past Medical History Past Medical History: Hypertension, Seizure Disorder Additional Past Medical History / Comment(s): TRAUMATIC BRAIN INJURY; "Heart Arrhythmia - skips beats"; Nerve damage - left hand and leg. History of Any Multi-Drug Resistant Organisms: MRSA Date of last positivie culture/infection: 2010 MDRO Source:: RIGHT TOE Past Surgical History: No Surgical Hx Reported Past Psychological History: PTSD Smoking Status: Never smoker Past Alcohol Use History: None Reported Past Drug Use History: Marijuana General Exam - General Exam Comments Initial Comments: GENERAL Patient is well-developed and well-nourished. Patient is in mild distress. EYES Patient's pupils are equal and round. Extraocular motion is intact SKIN Unremarkable NEURO The patient is alert and oriented 3 PYSCH Patient has normal interpersonal interactions. MUSCULOSKELETAL Patient's left elbow has redness on the posterior aspect there is no fluctuant area that would indicate an abscess however is warm and tender. There is no breaks in the skin. Limitations: no limitations Course Vital Signs 06/27/22 12:24 Temperature 98.1 F Pulse Rate 77 Respiratory 16 Rate Blood Pressure 142/89 O2 Sat by Pulse 97 Oximetry Disposition Clinical Impression: Septic olecranon bursitis Disposition: HOME SELF-CARE Condition: Good Instructions (If sedation given, give patient instructions): Elbow Bursitis (ED) Prescriptions: Sulfamethox-Tmp 800-160Mg [Bactrim DS 800-160 mg] 1 each PO Q12HR #10 tab Is patient prescribed a controlled substance at d/c from ED?: No Referrals: [facility],Clinic [Primary Care Provider] - 1-2 days Time of Disposition: 12:37
== END 2022-06-27 13:00 | disposition home or self-care (01) ==
LOC: EC 11:58
DX: M71.122 Other infective bursitis, left elbow (principal); I10 Essential (primary) hypertension; Z86.69 Personal history of other diseases of the nervous system and sense organs; Z79.891 Long term (current) use of opiate analgesic; Z79.899 Other long term (current) drug therapy
CPT/HCPCS: 99283

== ENCOUNTER 2022-11-06 12:45 | Emergency (ER) | payer OTHER, MEDICARE ==
[2022-11-06 13:05] VITALS: BP 120/84; PULSE 77; RESP 20; TEMP 97.8
--- NOTE | 2022-11-06 13:13 | ED ---
General Adult HPI - General Chief complaint: Recheck/Abnormal Lab/Rx Stated complaint: Medication refill Time Seen by Provider: 11/06/22 12:59 Source: patient, RN notes reviewed Mode of arrival: ambulatory Limitations: no limitations - History of Present Illness Initial comments: 37-year-old male presents emergency department for medication refill. Patient states that he is waiting on his mail in prescription of carbazpine. He states he takes 200 mg nightly for seizures. His last dose last night. Patient denies any seizures or any other complaints. He states his prescription this was read on Monday. - Related Data Home Medications Medication Instructions Recorded Confirmed Omeprazole [PriLOSEC] 20 mg PO DAILY 05/14/15 07/16/18 Sertraline [Zoloft] 150 mg PO DAILY 05/14/15 07/16/18 carBAMazepine [Carbatrol] 200 mg PO HS 05/14/15 07/16/18 Gabapentin [Neurontin] 200 mg PO TID 12/23/15 07/16/18 methocarbamoL [Robaxin] 500 mg PO TID 04/21/16 07/16/18 QUEtiapine FUMARATE [SEROquel] 300 mg PO HS 01/18/17 07/16/18 lisinopriL [Zestril] 10 mg PO DAILY 01/18/17 07/16/18 Cholecalciferol [Vitamin D3] 1,000 unit PO BID 07/16/18 07/16/18 Previous Rx's Medication Instructions Recorded Cephalexin [Keflex] 500 mg PO Q6H #28 cap 07/16/18 QUEtiapine FUMARATE [SEROquel] 300 mg PO HS 10 Days #10 tab 03/18/19 QUEtiapine FUMARATE [SEROquel] 300 mg PO HS #5 tab 09/09/20 Sulfamethox-Tmp 800-160Mg [Bactrim 1 each PO Q12HR #10 tab 06/27/22 DS 800-160 mg] carBAMazepine [Carbatrol] 200 mg PO HS #7 cap 11/06/22 Allergies Allergy/AdvReac Type Severity Reaction Status Date / Time No Known Allergies Allergy Verified 06/27/22 12:26 Review of Systems ROS Statement: Those systems with pertinent positive or pertinent negative responses have been documented in the HPI. ROS Other: All systems not noted in ROS Statement are negative. Past Medical History Past Medical History: Hypertension, Seizure Disorder Additional Past Medical History / Comment(s): TRAUMATIC BRAIN INJURY; "Heart Arrhythmia - skips beats"; Nerve damage - left hand and leg. History of Any Multi-Drug Resistant Organisms: MRSA Date of last positivie culture/infection: 2010 MDRO Source:: RIGHT TOE Past Surgical History: No Surgical Hx Reported Past Psychological History: PTSD Smoking Status: Never smoker Past Alcohol Use History: None Reported Past Drug Use History: Marijuana General Exam Limitations: no limitations General appearance: alert, in no apparent distress Head exam: Present: atraumatic, normocephalic, normal inspection Neck exam: Present: normal inspection. Absent: tenderness, meningismus, lymphadenopathy Respiratory exam: Present: normal lung sounds bilaterally. Absent: respiratory distress, wheezes, rales, rhonchi, stridor Cardiovascular Exam: Present: regular rate, normal rhythm, normal heart sounds. Absent: systolic murmur, diastolic murmur, rubs, gallop, clicks Course Vital Signs 11/06/22 12:58 Temperature 97.8 F Pulse Rate 77 Respiratory 20 Rate Blood Pressure 120/84 O2 Sat by Pulse 97 Oximetry Medical Decision Making - Medical Decision Making Was pt. sent in by a medical professional or institution (, PA, MECHANICAL ENGINEERING [employer], urgent care, hospital, or jail...) When possible be specific @ -No Did you speak to anyone other than the patient for history (EMS, parent, family, police, friend...)? What history was obtained from this source @ -No Did you review nursing and triage notes (agree or disagree)? Why? @ -I reviewed and agree with nursing and triage notes Were old charts reviewed (outside hosp., previous admission, EMS record, old EKG, old radiological studies, urgent care reports/EKG's, jail records)? Report findings @ -No old charts were reviewed Differential Diagnosis (chest pain, altered mental status, abdominal pain women, abdominal pain men, vaginal bleeding, weakness, fever, dyspnea, syncope, headache, dizziness, GI bleed, back pain, seizure, CVA, palpatations, mental health)? @ -Medication refill, seizures EKG interpreted by me (3pts min.). @ -None X-rays interpreted by me (1pt min.). @ -None done CT interpreted by me (1pt min.). @ -None done U/S interpreted by me (1pt. min.). @ -None done What testing was considered but not performed or refused? (CT, X-rays, U/S, labs)? Why? @ -None What meds were considered but not given or refused? Why? @ -None Did you discuss the management of the patient with other professionals (professionals i.e. , PA, MECH[employer] ENGINEER[employer], lab, RT, psych nurse, foster care social worker, negative retoucher, teacher, staff nuclear weapons officer, employment evaluator/case manager)? Give summary @ -No Was smoking cessation discussed for >3mins.? @ -No Was critical care preformed (if so, how long)? @ -No Were there social determinants of health that impacted care today? How? (Homelessness, low income, unemployed, alcoholism, drug addiction, transportation, low edu. Level, literacy, decrease access to med. care, fpc, rehab)? @ -No Was there de-escalation of care discussed even if they declined (Discuss DNR or withdrawal of care, Hospice)? DNR status @ -No What co-morbidities impacted this encounter? (DM, HTN, Smoking, COPD, CAD, Cancer, CVA, ARF, Chemo, Hep., AIDS, mental health diagnosis, sleep apnea, morbid obesity)? @ -None Was patient admitted / discharged? Hospital course, mention meds given and route, prescriptions, significant lab abnormalities, going to OR and other pertinent info. @ -Patient was discharged with one week's prescription of his medication. Return parameters were discussed. Undiagnosed new problem with uncertain prognosis? @ -No Drug Therapy requiring intensive monitoring for toxicity (Heparin, Nitro, Insulin, Cardizem)? @ -No Were any procedures done? @ -No Diagnosis/symptom? @ -Medication refill/seizure Acute, or Chronic, or Acute on Chronic? @ -Chronic Uncomplicated (without systemic symptoms) or Complicated (systemic symptoms)? @ -Uncomplicated Side effects of treatment? @ -No Exacerbation, Progression, or Severe Exacerbation? @ -No Poses a threat to life or bodily function? How? (Chest pain, [place], [place], pneumonia, PE, COPD, DKA, ARF, appy, cholecystitis, CVA, Diverticulitis, Homicidal, Suicidal, threat to staff... and all critical care pts) @ -No Disposition Clinical Impression: Encounter for medication refill, Seizure Disposition: HOME SELF-CARE Condition: Stable Additional Instructions: Please return to the Emergency Department if symptoms worsen or any other concerns. Prescriptions: carBAMazepine [Carbatrol] 200 mg PO HS #7 cap Is patient prescribed a controlled substance at d/c from ED?: No Referrals: [facility],Clinic [Primary Care Provider] - 1-2 days Time of Disposition: 13:13
== END 2022-11-06 13:17 | disposition home or self-care (01) ==
LOC: EC 12:45
DX: R56.9 Unspecified convulsions (principal); Z76.0 Encounter for issue of repeat prescription; I10 Essential (primary) hypertension; F12.90 Cannabis use, unspecified, uncomplicated
CPT/HCPCS: 99282

== ENCOUNTER 2023-06-11 15:26 | Emergency (ER) | payer OTHER ==
[2023-06-11 15:36] VITALS: BP 129/64; PULSE 96; RESP 18; TEMP 98.2
[2023-06-11] MEDS ORDERED: MORPHINE SULFATE 4 MG/ML SYRINGE IVP STA (15:44)
[2023-06-11 15:54] LABS: Basophils # (A) 0.1 k/uL (0-0.2); Basophils % (A) 1 %; Eosinophils # (A) 0.2 k/uL (0-0.7); Eosinophils % (A) 2 %; HCT 41.7 % (39.0-53.0); HGB 14.7 gm/dL (13.0-17.5); Lymphocytes # (A) 2.9 k/uL (1.0-4.8); Lymphocytes % (A) 33 %; MCH 32.7 pg (25.0-35.0); MCHC 35.2 g/dL (31.0-37.0); MCV 92.7 fL (80.0-100.0); Mean Platelet Volume 7.6; Monocytes # (A) 0.5 k/uL (0-1.0); Monocytes % (A) 6 %; Neutrophils % (A) 57 %; Platelet Count 293 k/uL (150-450); RBC 4.49 m/uL (4.30-5.90); WBC 8.7 k/uL (3.8-10.6)
--- NOTE | 2023-06-11 16:02 | XR ---
EXAMINATION TYPE: XR chest 1V portable DATE OF EXAM: 06/11/2023 COMPARISON: NONE HISTORY: Trauma TECHNIQUE: Single frontal view of the chest is obtained. FINDINGS: There is no focal air space opacity, pleural effusion, or pneumothorax seen. The cardiac silhouette size is within normal limits. The osseous structures are intact. IMPRESSION: No significant abnormality seen.
[2023-06-11 16:04] LABS: INR 0.9 (<1.2); Partial Thromboplastin Time 22.9 sec (22.0-30.0)
--- NOTE | 2023-06-11 16:19 | CT ---
EXAMINATION TYPE: CT brain cspine wo con DATE OF EXAM: 06/11/2023 COMPARISON: None HISTORY: fall CT DLP: 1792.2 mGycm Automated exposure control for dose reduction was used. TECHNIQUE: CT scan of the head and cervical spine are performed without contrast. FINDINGS: Head CT: There is no acute intracranial hemorrhage, mass effect, or midline shift identified. The ventricle s and sulci are within normal limits in size. The globes are intact and the visualized sinuses are c lear. CT cervical spine: Cervical spine is visualized in its entirety from C1 through upper thoracic levels and demonstrates s atisfactory alignment without evidence of acute fracture or dislocation. Prevertebral soft tissue ap pears within normal limits. The C1-C2 articulation is unremarkable. IMPRESSION: 1. There is no acute fracture or dislocation evident in the cervical spine. 2. No acute intracranial hemorrhage, mass effect, or midline shift is seen.
--- NOTE | 2023-06-11 16:21 | XR ---
Right hand HISTORY: Trauma COMPARISON: None TECHNIQUE: 3 views the right hand were obtained. FINDINGS: There is no fracture, dislocation, intraosseous or intra-articular abnormality. There is no soft tiss ue, radiopaque foreign body, gas or calcification. IMPRESSION: No significant abnormality seen.
--- NOTE | 2023-06-11 16:22 | XR ---
Right elbow HISTORY: Trauma COMPARISON: None TECHNIQUE: 3 views the right elbow were obtained. FINDINGS: There is no fracture, dislocation, intraosseous or intra-articular abnormality. There is no joint eff usion. There is no radiopaque foreign body or abnormal soft tissue gas or calcification. IMPRESSION: No significant abnormality seen.
[2023-06-11 16:23] LABS: ALT 19 U/L (4-49); AST 26 U/L (17-59); African American GFR (CKD) >90 (>60 ml/min/1.73 sqM); Albumin 4.5 g/dL (3.5-5.0); Alcohol <10 mg/dL; Alkaline Phosphatase 73 U/L (38-126); Anion Gap 12 mmol/L; Blood Urea Nitrogen 17 mg/dL (9-20); Calcium 9.2 mg/dL (8.4-10.2); Carbon Dioxide 20 mmol/L (22-30); Chloride 106 mmol/L (98-107); Glucose 129 mg/dL (74-99); Non-African American GFR(CKD) 87 (>60 ml/min/1.73 sqM); Potassium 3.7 mmol/L (3.5-5.1); Sodium 138 mmol/L (137-145); Total Bilirubin 0.5 mg/dL (0.2-1.3)
--- NOTE | 2023-06-11 16:24 | XR ---
Bilateral knees HISTORY: Trauma. COMPARISON: None. TECHNIQUE: 6 views of the knees were obtained including 3 of the right and 3 of the left. FINDINGS: There is no fracture, dislocation, intraosseous or intra-articular abnormality. There are no joint ef fusions. There are no radiopaque foreign bodies or abnormal soft tissue calcifications. IMPRESSION: No significant abnormality seen.
--- NOTE | 2023-06-11 16:28 | CT ---
EXAMINATION TYPE: CT thor lumbar spine wo con DATE OF EXAM: 06/11/2023 COMPARISON: None HISTORY: fall CT DLP: 3679.3 mGycm Automated exposure control for dose reduction was used. FINDINGS: The thoracic and lumbar vertebral segments are in normal in height and alignment and there is no frac ture or subluxation. The disc spaces well-maintained in height. The visualized ribs are intact without evidence of fracture. There is no bony encroachment of the spinal canal throughout the thoracic or lumbar region. Visualized pelvic bones are intact. The paraspinal soft tissues are normal. IMPRESSION: NO EVIDENCE OF TRAUMA TO THE THORACIC OR LUMBAR SPINE.
--- NOTE | 2023-06-11 17:16 | ED ---
Trauma HPI - General Chief Complaint: Trauma Stated Complaint: FELL 20FT Time Seen by Provider: 06/11/23 15:35 Source: patient, family Mode of arrival: wheelchair Limitations: no limitations - History of Present Illness Initial Comments: 37-year-old male presents emergency department as a trauma activation. He was working on his tree stand when he fell out of it from a height of 20 feet. SMAC the left side of his face on the dirt. He complains of left-sided facial pain. No neck pain. Does have some thoracic and lumbar back pain. Patient sustained some scrapes to his right hand. He is right-hand dominant. He also complains of bilateral knee pain and right elbow pain. He did not take anything before coming into the emergency room and as he proceeded immediately to the hospital. He denies any headaches or visual changes. No numbness, tingling or weakness in his extremities. No chest pain or shortness of breath. No hip pain. He does not take any blood thinners. No other alleviating, precipitating or modifying factors - Related Data Home Medications Medication Instructions Recorded Confirmed Omeprazole [PriLOSEC] 20 mg PO DAILY 05/14/15 07/16/18 Sertraline [Zoloft] 150 mg PO DAILY 05/14/15 07/16/18 carBAMazepine [Carbatrol] 200 mg PO HS 05/14/15 07/16/18 Gabapentin [Neurontin] 200 mg PO TID 12/23/15 07/16/18 methocarbamoL [Robaxin] 500 mg PO TID 04/21/16 07/16/18 QUEtiapine FUMARATE [SEROquel] 300 mg PO HS 01/18/17 07/16/18 lisinopriL [Zestril] 10 mg PO DAILY 01/18/17 07/16/18 Cholecalciferol [Vitamin D3] 1,000 unit PO BID 07/16/18 07/16/18 Previous Rx's Medication Instructions Recorded Cephalexin [Keflex] 500 mg PO Q6H #28 cap 07/16/18 QUEtiapine FUMARATE [SEROquel] 300 mg PO HS 10 Days #10 tab 03/18/19 QUEtiapine FUMARATE [SEROquel] 300 mg PO HS #5 tab 09/09/20 Sulfamethox-Tmp 800-160Mg [Bactrim 1 each PO Q12HR #10 tab 06/27/22 DS 800-160 mg] carBAMazepine [Carbatrol] 200 mg PO HS #7 cap 11/06/22 Cyclobenzaprine [Flexeril] 10 mg PO TID PRN #15 tab 06/11/23 Allergies Allergy/AdvReac Type Severity Reaction Status Date / Time No Known Allergies Allergy Verified 06/11/23 15:32 Review of Systems ROS Statement: Those systems with pertinent positive or pertinent negative responses have been documented in the HPI. ROS Other: All systems not noted in ROS Statement are negative. Past Medical History Past Medical History: Hypertension, Seizure Disorder Additional Past Medical History / Comment(s): TRAUMATIC BRAIN INJURY; "Heart Arrhythmia - skips beats"; Nerve damage - left hand and leg. History of Any Multi-Drug Resistant Organisms: MRSA Date of last positivie culture/infection: 2010 MDRO Source:: RIGHT TOE Past Surgical History: No Surgical Hx Reported Past Psychological History: PTSD Smoking Status: Never smoker Past Alcohol Use History: None Reported Past Drug Use History: Marijuana General Exam Limitations: no limitations General appearance: alert, in no apparent distress Head exam: Present: normocephalic Eye exam: Present: normal appearance, PERRL, EOMI. Absent: scleral icterus, conjunctival injection, periorbital swelling ENT exam: Present: normal exam, mucous membranes moist, other (Dirt noted to the left side of the patient's face) Neck exam: Present: normal inspection. Absent: tenderness, meningismus, lymphadenopathy Respiratory exam: Present: normal lung sounds bilaterally. Absent: respiratory distress, wheezes, rales, rhonchi, stridor Cardiovascular Exam: Present: regular rate, normal rhythm, normal heart sounds. Absent: systolic murmur, diastolic murmur, rubs, gallop, clicks GI/Abdominal exam: Present: soft, normal bowel sounds. Absent: distended, tenderness, guarding, rebound, rigid Extremities exam: Present: other (Tenderness to palpation of the bilateral anterior knees and right elbow. No obvious deformity. 2+ distal pulses. Intact sensation. Multiple abrasions and skin tears noted to the right hand. No deep lacerations. Intact range of motion. No active bleeding) Back exam: Present: other (Patient has tenderness around T4 and T10. No step- offs appreciated) Neurological exam: Present: alert, oriented X3, CN II-XII intact Psychiatric exam: Present: normal affect, normal mood Course Vital Signs 06/11/23 15:32 Temperature 98.2 F Pulse Rate 96 Respiratory 18 Rate Blood Pressure 129/64 O2 Sat by Pulse 99 Oximetry Medical Decision Making - Medical Decision Making Was pt. sent in by a medical professional or institution (, PA, SCHOOL PHOTOGRAPH EDITOR, urgent care, hospital, or long-term...) When possible be specific @ -No Did you speak to anyone other than the patient for history (EMS, parent, family, police, friend...)? What history was obtained from this source @ -No Did you review nursing and triage notes (agree or disagree)? Why? @ -I reviewed and agree with nursing and triage notes Were old charts reviewed (outside hosp., previous admission, EMS record, old EKG, old radiological studies, urgent care reports/EKG's, long-term records)? Report findings @ -No old charts were reviewed Differential Diagnosis (chest pain, altered mental status, abdominal pain women, abdominal pain men, vaginal bleeding, weakness, fever, dyspnea, syncope, headache, dizziness, GI bleed, back pain, seizure, CVA, palpatations, mental health, musculoskeletal)? @ -Differential Musculoskeletal Muscular strain, contusion, ligament sprain, fracture, arthritis, septic arthritis, bursitis, cellulitis, muscle spasm, nerve compression, DVT, arterial occlusion, herpes zoster, electrolyte abnormality, tumor.... This is not meant to be in all inclusive list Differential Back Pain: Strain, zoster, cauda equina syndrome, epidural abscess, vertebral osteomyelitis, discitis, fracture, subluxation, disc herniation, DJD, spinal stenosis, dissection, AAA, pancreatitis, peptic ulcer disease, pyelonephritis, kidney stone, this is not meant to be an all-inclusive list. EKG interpreted by me (3pts min.). @ -Yes and demonstrates sinus rhythm with a rate of 64. NH interval 160. QRS 102. QTC 376. No acute ST segment elevations or depressions X-rays interpreted by me (1pt min.). @ -Yes and demonstrates no acute fractures CT interpreted by me (1pt min.). @ -Yes and demonstrates no acute fractures U/S interpreted by me (1pt. min.). @ -None done What testing was considered but not performed or refused? (CT, X-rays, U/S, labs)? Why? @ -None What meds were considered but not given or refused? Why? @ -None Did you discuss the management of the patient with other professionals (professionals i.e. , PA, SCHOOL PHOTOGRAPH EDITOR, lab, RT, psych nurse, oncology social worker, production painter, teacher, [place] police officer, registered nurse hh case manager)? Give summary @ -Spoke with Dr. Hurd as the patient is a trauma activation Was smoking cessation discussed for >3mins.? @ -No Was critical care preformed (if so, how long)? @ -No Were there social determinants of health that impacted care today? How? (Homelessness, low income, unemployed, alcoholism, drug addiction, transportation, low edu. Level, literacy, decrease access to med. care, residential, rehab)? @ -No Was there de-escalation of care discussed even if they declined (Discuss DNR or withdrawal of care, Hospice)? DNR status @ -No What co-morbidities impacted this encounter? (DM, HTN, Smoking, COPD, CAD, [place], CVA, ARF, Chemo, Hep., AIDS, mental health diagnosis, sleep apnea, morbid obesity)? @ -None Was patient admitted / discharged? Hospital course, mention meds given and route, prescriptions, significant lab abnormalities, going to OR and other pertinent info. @ -Upon arrival patient was placed into trauma 2. A thorough history and physical exam was performed. Airway is patent. Equal breath sounds bilaterally. 2+ upper and lower extremity pulses. Disability is assessed and the patient is alert and oriented 4 with a GCS of 15. Portable chest x-rays performed. Patient does go for CT of his head and cervical spine. He has multiple x-rays performed. They are reviewed and are negative for any acute injuries. He is given a muscle relaxer. Patient we discharged home and instructed to follow up with primary care doctor. Return for any new or worsening symptoms. Patient was agreeable and discharged in stable condition Undiagnosed new problem with uncertain prognosis? @ -Yes Drug Therapy requiring intensive monitoring for toxicity (Heparin, Nitro, Insulin, Cardizem)? @ -No Were any procedures done? @ -Dermabond repair of right hand skin tear Diagnosis/symptom? @ -Acute fall from height, blunt head trauma, acute thoracic back pain, right elbow pain, bilateral knee pain, abrasions right hand Acute, or Chronic, or Acute on Chronic? @ -Acute Uncomplicated (without systemic symptoms) or Complicated (systemic symptoms)? @ -Complicated Side effects of treatment? @ -No Exacerbation, Progression, or Severe Exacerbation? @ -No Poses a threat to life or bodily function? How? (Chest pain, [place], [place], pneumonia, PE, COPD, DKA, ARF, appy, cholecystitis, CVA, Diverticulitis, Homicidal, Suicidal, threat to staff... and all critical care pts) @ -No - Lab Data Result diagrams: 06/11/23 15:39 06/11/23 15:39 Lab Results 06/11/23 06/11/23 06/11/23 Range/Units 15:39 15:39 15:39 WBC 8.7 (3.8-10.6) k/uL RBC 4.49 (4.30-5.90) m/uL Hgb 14.7 (13.0-17.5) gm/dL Hct 41.7 (39.0-53.0) % MCV 92.7 (80.0-100.0) fL MCH 32.7 (25.0-35.0) pg MCHC 35.2 (31.0-37.0) g/dL RDW 12.0 (11.5-15.5) % Plt Count 293 (150-450) k/uL MPV 7.6 Neutrophils % 57 % Lymphocytes % 33 % Monocytes % 6 % Eosinophils % 2 % Basophils % 1 % Neutrophils # 5.0 (1.3-7.7) k/uL Lymphocytes # 2.9 (1.0-4.8) k/uL Monocytes # 0.5 (0-1.0) k/uL Eosinophils # 0.2 (0-0.7) k/uL Basophils # 0.1 (0-0.2) k/uL PT 10.0 (9.0-12.0) sec INR 0.9 (<1.2) APTT 22.9 (22.0-30.0) sec Sodium 138 (137-145) mmol/L Potassium 3.7 (3.5-5.1) mmol/L Chloride 106 (98-107) mmol/L Carbon Dioxide 20 L (22-30) mmol/L Anion Gap 12 mmol/L BUN 17 (9-20) mg/dL Creatinine 1.09 (0.66-1.25) mg/dL Est GFR (CKD-EPI)AfAm >90 (>60 ml/min/1.73 sqM) Est GFR (CKD-EPI)NonAf 87 (>60 ml/min/1.73 sqM) Glucose 129 H (74-99) mg/dL Calcium 9.2 (8.4-10.2) mg/dL Total Bilirubin 0.5 (0.2-1.3) mg/dL AST 26 (17-59) U/L ALT 19 (4-49) U/L Alkaline Phosphatase 73 (38-126) U/L Total Protein 8.0 (6.3-8.2) g/dL Albumin 4.5 (3.5-5.0) g/dL Serum Alcohol <10 mg/dL Disposition Clinical Impression: Fall from height of greater than 3 feet, Abrasion of right hand, Blunt head trauma, Right elbow pain, Back pain Disposition: HOME SELF-CARE Condition: Stable Instructions (If sedation given, give patient instructions): Head Injury (ED) Additional Instructions: Please take the muscle relaxer as needed for any muscle discomfort. Follow-up with your primary care doctor and return for any new or worsening symptoms Prescriptions: Cyclobenzaprine [Flexeril] 10 mg PO TID PRN #15 tab PRN Reason: Muscle Spasm Is patient prescribed a controlled substance at d/c from ED?: No Referrals: [facility],Clinic [Primary Care Provider] - 1-2 days Time of Disposition: 17:29
[2023-06-11] MEDS ORDERED: CYCLOBENZAPRINE 10MG STARTER 3 TAB BTL PO STA (17:23)
[2023-06-11] MEDS ORDERED: TOPICAL SKIN ADHESIVE 1 EACH AMP TOPICAL ONE (17:25)
== END 2023-06-11 18:19 | disposition home or self-care (01) ==
LOC: EC 15:26
DX: S60.511A Abrasion of right hand, initial encounter (principal); S09.90XA Unspecified injury of head, initial encounter; I10 Essential (primary) hypertension; F12.90 Cannabis use, unspecified, uncomplicated; W17.89XA Other fall from one level to another, initial encounter
CPT/HCPCS: 36415; 93005; 80053; 85025; 85610; 85730; 80320; 73562; 73080; 73130; 71045; 72128; 72125; 72131; 70450; 99284; 96374; J2270

== ENCOUNTER 2024-04-24 17:23 | Emergency (ER) | payer OTHER ==
--- NOTE | 2024-04-24 17:54 | ED ---
Wound/Laceration HPI - General Chief Complaint: Wound/Laceration Stated Complaint: Left index finger injury, open wound Time Seen by Provider: 04/24/24 17:53 Source: patient, family, RN notes reviewed Mode of arrival: ambulatory Limitations: no limitations - History of Present Illness Initial Comments: Patient is a 38-year-old male presented to the ER with a chief complaint of a laceration. Patient was making cabbage soup and while cutting the cabbage he accidentally sliced his left index finger. Patient states he applied immediate pressure to control bleeding. Incident occurred approximately 10 minutes prior to arrival. No blood thinner use. Tetanus is up to date. Denies any paresthesias or other injuries. - Related Data Home Medications Medication Instructions Recorded Confirmed Omeprazole [PriLOSEC] 20 mg PO DAILY 05/14/15 07/16/18 Sertraline [Zoloft] 150 mg PO DAILY 05/14/15 07/16/18 carBAMazepine [Carbatrol] 200 mg PO HS 05/14/15 07/16/18 Gabapentin [Neurontin] 200 mg PO TID 12/23/15 07/16/18 methocarbamoL [Robaxin] 500 mg PO TID 04/21/16 07/16/18 QUEtiapine FUMARATE [SEROquel] 300 mg PO HS 01/18/17 07/16/18 lisinopriL [Zestril] 10 mg PO DAILY 01/18/17 07/16/18 Cholecalciferol [Vitamin D3] 1,000 unit PO BID 07/16/18 07/16/18 Previous Rx's Medication Instructions Recorded Cephalexin [Keflex] 500 mg PO Q6H #28 cap 07/16/18 QUEtiapine FUMARATE [SEROquel] 300 mg PO HS 10 Days #10 tab 03/18/19 QUEtiapine FUMARATE [SEROquel] 300 mg PO HS #5 tab 09/09/20 Sulfamethox-Tmp 800-160Mg [Bactrim 1 each PO Q12HR #10 tab 06/27/22 DS 800-160 mg] carBAMazepine [Carbatrol] 200 mg PO HS #7 cap 11/06/22 Cyclobenzaprine [Flexeril] 10 mg PO TID PRN #15 tab 06/11/23 Allergies Allergy/AdvReac Type Severity Reaction Status Date / Time No Known Allergies Allergy Verified 06/11/23 15:32 Review of Systems ROS Statement: Those systems with pertinent positive or pertinent negative responses have been documented in the HPI. ROS Other: All systems not noted in ROS Statement are negative. Past Medical History Past Medical History: Hypertension, Seizure Disorder Additional Past Medical History / Comment(s): TRAUMATIC BRAIN INJURY; "Heart Arrhythmia - skips beats"; Nerve damage - left hand and leg. History of Any Multi-Drug Resistant Organisms: MRSA Date of last positivie culture/infection: 2010 MDRO Source:: RIGHT TOE Past Surgical History: No Surgical Hx Reported Past Psychological History: PTSD Smoking Status: Never smoker Past Alcohol Use History: None Reported Past Drug Use History: Marijuana General Exam Limitations: no limitations General appearance: alert, in no apparent distress Respiratory exam: Present: normal lung sounds bilaterally. Absent: respiratory distress, wheezes, rales, rhonchi, stridor Cardiovascular Exam: Present: regular rate, normal rhythm, normal heart sounds. Absent: systolic murmur, diastolic murmur, rubs, gallop, clicks Extremities exam: Present: other (2 cm actively bleeding laceration to left index finger. Patient has full active range of motion. 2+ left radial pulse. Sensation intact.) Neurological exam: Present: alert, oriented X3, CN II-XII intact Skin exam: Present: warm, dry, intact, normal color. Absent: rash Course Vital Signs 04/24/24 17:25 Temperature 97.7 F Pulse Rate 76 Respiratory 16 Rate Blood Pressure 150/94 O2 Sat by Pulse 98 Oximetry Procedures - Laceration Laceration #1 Consent Obtained: verbal consent Indication: laceration Site: hand Size (cm): 2 Description: linear Anesthetic Used: lidocaine 1%, without epi Anesthesia Technique: nerve block Amount (mls): 10 Pre-repair: wound explored, irrigated extensively, deep structures intact Type of Sutures: nylon Size of Sutures: 4-0 Number of Sutures: 4 Technique: simple, interrupted Patient Tolerated Procedure: well Medical Decision Making - Medical Decision Making Was pt. sent in by a medical professional or institution (, PA, ASIAN ART CURATOR, urgent care, hospital, or intermediate...) When possible be specific @ -No Did you speak to anyone other than the patient for history (EMS, parent, family, police, friend...)? What history was obtained from this source @ -No Did you review nursing and triage notes (agree or disagree)? Why? @ -I reviewed and agree with nursing and triage notes Were old charts reviewed (outside hosp., previous admission, EMS record, old EKG, old radiological studies, urgent care reports/EKG's, intermediate records)? Report findings @ -No old charts were reviewed Differential Diagnosis (chest pain, altered mental status, abdominal pain women, abdominal pain men, vaginal bleeding, weakness, fever, dyspnea, syncope, headache, dizziness, GI bleed, back pain, seizure, CVA, palpatations, mental health, musculoskeletal)? @ -Laceration, abrasion, contusion, avulsion, foreign body this list is not meant to be all-inclusive EKG interpreted by me (3pts min.). @ -None X-rays interpreted by me (1pt min.). @ -Left index finger x-ray interpreted by me negative for acute osseous process. No radiopaque foreign bodies. CT interpreted by me (1pt min.). @ -None done U/S interpreted by me (1pt. min.). @ -None done What testing was considered but not performed or refused? (CT, X-rays, U/S, labs)? Why? @ -None What meds were considered but not given or refused? Why? @ -None Did you discuss the management of the patient with other professionals (professionals i.e. , PA, ASIAN ART CURATOR, lab, RT, psych nurse, manager social work, housekeeping staff, teacher, special officer automat, mattress spring encaser)? Give summary @ -No Was smoking cessation discussed for >3mins.? @ -No Was critical care preformed (if so, how long)? @ -No Were there social determinants of health that impacted care today? How? (Homelessness, low income, unemployed, alcoholism, drug addiction, transportation, low edu. Level, literacy, decrease access to med. care, skilled nursing, rehab)? @ -No Was there de-escalation of care discussed even if they declined (Discuss DNR or withdrawal of care, Hospice)? DNR status @ -No What co-morbidities impacted this encounter? (DM, HTN, Smoking, COPD, CAD, Cancer, CVA, ARF, Chemo, Hep., AIDS, mental health diagnosis, sleep apnea, morbid obesity)? @ -None Was patient admitted / discharged? Hospital course, mention meds given and route, prescriptions, significant lab abnormalities, going to OR and other pertinent info. @ -Discharge. 38 year old male presenting to the ER with a chief complaint of a laceration. History and physical exam completed. Vitals stable. Exam remarkable to a 2 cm actively bleeding laceration to left index finger. Left upper extremity neurovascular intact. Patient has full active range of motion. Laceration closed using 4 simple interrupted sutures. Bleeding controlled post closure. Xrays obtained of left index finger negative for acute radiopaque foreign body or osseous process. Patient's tetanus is up-to-date. Results discussed with patient, all questions answered. Advised suture removal in 10 to 14 days. Suture care and return parameters discussed. Patient discharged in stable condition. Patient verbally expressed understanding and agreement with care plan. Case discussed with ED attending, Dr. Thompson. Undiagnosed new problem with uncertain prognosis? @ -No Drug Therapy requiring intensive monitoring for toxicity (Heparin, Nitro, Insulin, Cardizem)? @ -No Were any procedures done? @ -Yes laceration repair Diagnosis/symptom? @ -Laceration Acute, or Chronic, or Acute on Chronic? @ -Acute Uncomplicated (without systemic symptoms) or Complicated (systemic symptoms)? @ -Uncomplicated Side effects of treatment? @ -No Exacerbation, Progression, or Severe Exacerbation? @ -No Poses a threat to life or bodily function? How? (Chest pain, [place], [place], pneumonia, PE, COPD, DKA, ARF, appy, cholecystitis, CVA, Diverticulitis, Homicidal, Suicidal, threat to staff... and all critical care pts) @ -No - Radiology Data Radiology results: report reviewed, image reviewed Disposition Clinical Impression: Laceration Disposition: HOME SELF-CARE Condition: Stable Instructions (If sedation given, give patient instructions): Care For Your Stitches (DC) Additional Instructions: You may clean area with warm soapy water daily. Monitor for signs of infection including surrounding redness, pearly drainage or increase in swelling. Have sutures removed in 10 to 14 days. Return to the ER for any new or worsening symptoms. Is patient prescribed a controlled substance at d/c from ED?: No Referrals: [facility],Clinic [Primary Care Provider] - 1-2 days Time of Disposition: 18:42
[2024-04-24] MEDS: LIDOCAINE 1% INJ 10MG/ML (20 ML MDV) SQ ONE (18:08)
--- NOTE | 2024-04-24 18:40 | XR ---
EXAMINATION TYPE: XR finger LT DATE OF EXAM: 04/24/2024 6:23 PM CLINICAL INDICATION:Male, 38 years old with history of laceration; COMPARISON: None TECHNIQUE: XR finger LT Frontal, lateral and oblique views were obtained. FINDINGS: Normal alignment of the visualized joints. No acute osseous pathology is identified. Soft tissue injury not well appreciated.. No significant degeneration no radiopaque foreign body. IMPRESSION: 1. No acute osseous pathology. 2. Soft tissue injury now appreciated, no evidence of radiopaque foreign body.
[2024-04-24 19:27] VITALS: BP 138/86; PULSE 84; RESP 18; TEMP 97.8
== END 2024-04-24 19:27 | disposition home or self-care (01) ==
LOC: EC 17:23
DX: S61.211A Laceration without foreign body of left index finger without damage to nail, initial encounter (principal); F12.90 Cannabis use, unspecified, uncomplicated; W45.8XXA Other foreign body or object entering through skin, initial encounter
CPT/HCPCS: 73140; 99283; 12001; J2001

== ENCOUNTER 2024-05-03 13:31 | Emergency (ER) | payer OTHER ==
[2024-05-03 13:54] VITALS: BP 115/73; PULSE 74; RESP 18; TEMP 98.1
--- NOTE | 2024-05-03 14:10 | ED ---
General Adult HPI - General Chief complaint: Wound/Laceration Stated complaint: poss infection-Finger Time Seen by Provider: 05/03/24 14:00 Source: patient, RN notes reviewed, old records reviewed Mode of arrival: ambulatory Limitations: no limitations - History of Present Illness Initial comments: This is a 38-year-old male who presents emergency Department complaining that he cut his left index finger couple of days ago came to the emergency department and had stitches placed. Patient states he comes in today because his fingers swollen and he was concerned it might be getting infected. Patient states the redness has not changed much in his been no pus from the wound. There is no red streaking is been no fevers chills per patient has full range of motion of the finger. - Related Data Home Medications Medication Instructions Recorded Confirmed Omeprazole [PriLOSEC] 20 mg PO DAILY 05/14/15 07/16/18 Sertraline [Zoloft] 150 mg PO DAILY 05/14/15 07/16/18 carBAMazepine [Carbatrol] 200 mg PO HS 05/14/15 07/16/18 Gabapentin [Neurontin] 200 mg PO TID 12/23/15 07/16/18 methocarbamoL [Robaxin] 500 mg PO TID 04/21/16 07/16/18 QUEtiapine FUMARATE [SEROquel] 300 mg PO HS 01/18/17 07/16/18 lisinopriL [Zestril] 10 mg PO DAILY 01/18/17 07/16/18 Cholecalciferol [Vitamin D3] 1,000 unit PO BID 07/16/18 07/16/18 Previous Rx's Medication Instructions Recorded Cephalexin [Keflex] 500 mg PO Q6H #28 cap 07/16/18 QUEtiapine FUMARATE [SEROquel] 300 mg PO HS 10 Days #10 tab 03/18/19 QUEtiapine FUMARATE [SEROquel] 300 mg PO HS #5 tab 09/09/20 Sulfamethox-Tmp 800-160Mg [Bactrim 1 each PO Q12HR #10 tab 06/27/22 DS 800-160 mg] carBAMazepine [Carbatrol] 200 mg PO HS #7 cap 11/06/22 Cyclobenzaprine [Flexeril] 10 mg PO TID PRN #15 tab 06/11/23 Cephalexin [Keflex] 500 mg PO Q6HR #28 cap 05/03/24 Allergies Allergy/AdvReac Type Severity Reaction Status Date / Time risperidone AdvReac Unknown Verified 05/03/24 13:55 Review of Systems ROS Statement: Those systems with pertinent positive or pertinent negative responses have been documented in the HPI. ROS Other: All systems not noted in ROS Statement are negative. Past Medical History Past Medical History: Hypertension, Seizure Disorder Additional Past Medical History / Comment(s): TRAUMATIC BRAIN INJURY; "Heart Arrhythmia - skips beats"; Nerve damage - left hand and leg. History of Any Multi-Drug Resistant Organisms: MRSA Date of last positivie culture/infection: 2010 MDRO Source:: RIGHT TOE Past Surgical History: No Surgical Hx Reported Past Psychological History: PTSD Smoking Status: Never smoker Past Alcohol Use History: None Reported Past Drug Use History: Marijuana General Exam - General Exam Comments Initial Comments: Patient's wound appears to be healing well there is minimal erythema there is no fluctuance and there is no fluid drainage from the cut. Limitations: no limitations General appearance: alert, in no apparent distress Head exam: Present: atraumatic Extremities exam: Present: other (Patient's laceration appears to be healing well there is no fluctuance or drainage and it is only minimal erythema just adjacent to the laceration) Course Vital Signs 05/03/24 13:51 Temperature 98.1 F Pulse Rate 74 Respiratory 18 Rate Blood Pressure 115/73 O2 Sat by Pulse 98 Oximetry Medical Decision Making - Medical Decision Making Patient we placed on antibiotics as an outpatient and he was told to use bacitracin on the outsideOf the wound. Disposition Clinical Impression: Infected laceration Disposition: HOME SELF-CARE Condition: Good Prescriptions: Cephalexin [Keflex] 500 mg PO Q6HR #28 cap Is patient prescribed a controlled substance at d/c from ED?: No Referrals: [facility],Clinic [Primary Care Provider] - 1-2 days Time of Disposition: 14:10
== END 2024-05-03 14:20 | disposition home or self-care (01) ==
LOC: EC 13:31
DX: S61.211A Laceration without foreign body of left index finger without damage to nail, initial encounter (principal); Z88.8 Allergy status to other drugs, medicaments and biological substances; W26.9XXA Contact with unspecified sharp object(s), initial encounter
CPT/HCPCS: 99282

== ENCOUNTER 2024-09-13 11:00 | Emergency (ER) | payer OTHER ==
--- NOTE | 2024-09-13 12:16 | ED ---
Abdominal Pain HPI - General Chief Complaint: Abdominal Pain Stated Complaint: Abdominal Pain Time Seen by Provider: 09/13/24 12:12 Source: patient, family, RN notes reviewed Mode of arrival: wheelchair Limitations: no limitations - History of Present Illness Initial Comments: 38-year-old male presenting to the ER with chief complaint of hematuria x 2 days with associated lower abdominal pain. Describes the pain as a dull pain that is worse with movement. States urine is bright red. Reports symptoms have been worsening over the past 2 days. Denies blood thinners. He is a non-smoker. He has never had this pain before. Bowel movements are normal. States he has not been able to eat due to the pain. States he has been sexually active with 1 female partner over the last 10 years, denies possibility of STDs. Denies testicular pain or swelling, penile discharge. History of hypertension and "an arrhythmia" otherwise denies any other health conditions. - Related Data Home Medications Medication Instructions Recorded Confirmed Omeprazole [PriLOSEC] 20 mg PO DAILY 05/14/15 07/16/18 Sertraline [Zoloft] 150 mg PO DAILY 05/14/15 07/16/18 carBAMazepine [Carbatrol] 200 mg PO HS 05/14/15 07/16/18 Gabapentin [Neurontin] 200 mg PO TID 12/23/15 07/16/18 methocarbamoL [Robaxin] 500 mg PO TID 04/21/16 07/16/18 QUEtiapine FUMARATE [SEROquel] 300 mg PO HS 01/18/17 07/16/18 lisinopriL [Zestril] 10 mg PO DAILY 01/18/17 07/16/18 Cholecalciferol [Vitamin D3] 1,000 unit PO BID 07/16/18 07/16/18 Previous Rx's Medication Instructions Recorded Cephalexin [Keflex] 500 mg PO Q6H #28 cap 07/16/18 QUEtiapine FUMARATE [SEROquel] 300 mg PO HS 10 Days #10 tab 03/18/19 QUEtiapine FUMARATE [SEROquel] 300 mg PO HS #5 tab 09/09/20 Sulfamethox-Tmp 800-160Mg [Bactrim 1 each PO Q12HR #10 tab 06/27/22 DS 800-160 mg] carBAMazepine [Carbatrol] 200 mg PO HS #7 cap 11/06/22 Cyclobenzaprine [Flexeril] 10 mg PO TID PRN #15 tab 06/11/23 Cephalexin [Keflex] 500 mg PO Q6HR #28 cap 05/03/24 Cefpodoxime Proxetil [Vantin] 200 mg PO Q12HR 10 Days #20 tab 09/13/24 Allergies Allergy/AdvReac Type Severity Reaction Status Date / Time risperidone AdvReac Unknown Verified 09/13/24 11:23 Review of Systems ROS Statement: Those systems with pertinent positive or pertinent negative responses have been documented in the HPI. ROS Other: All systems not noted in ROS Statement are negative. Past Medical History Past Medical History: Hypertension, Seizure Disorder Additional Past Medical History / Comment(s): TRAUMATIC BRAIN INJURY; "Heart Arrhythmia - skips beats"; Nerve damage - left hand and leg. Tinnitus History of Any Multi-Drug Resistant Organisms: MRSA Date of last positivie culture/infection: 2010 MDRO Source:: RIGHT TOE Past Surgical History: No Surgical Hx Reported Past Psychological History: PTSD Smoking Status: Never smoker Past Alcohol Use History: None Reported Past Drug Use History: Marijuana General Exam Limitations: no limitations General appearance: alert, in no apparent distress Head exam: Present: atraumatic, normocephalic, normal inspection GI/Abdominal exam: Present: soft, tenderness (Diffuse mild tenderness to palpation in bilateral lower quadrants), normal bowel sounds. Absent: distended, guarding, rebound, rigid exam: Present: other (Patient declined examination) Back exam: Present: normal inspection. Absent: CVA tenderness (R), CVA tenderness (L) Neurological exam: Present: alert, oriented X3 Psychiatric exam: Present: normal affect, normal mood Skin exam: Present: warm, dry, intact, normal color. Absent: rash Course Vital Signs 09/13/24 09/13/24 09/13/24 11:23 13:57 15:58 Temperature 97.8 F 98.6 F 98.4 F Pulse Rate 75 62 86 Respiratory 18 17 16 Rate Blood Pressure 115/72 131/88 108/72 O2 Sat by Pulse 97 95 95 Oximetry Medical Decision Making - Medical Decision Making Was pt. sent in by a medical professional or institution (, PA, ADDRESSOGRAPH OPERATOR, urgent care, hospital, or snf...) When possible be specific @ -No Did you speak to anyone other than the patient for history (EMS, parent, family, police, friend...)? What history was obtained from this source @ -No Did you review nursing and triage notes (agree or disagree)? Why? @ -I reviewed and agree with nursing and triage notes Were old charts reviewed (outside hosp., previous admission, EMS record, old EKG, old radiological studies, urgent care reports/EKG's, snf records)? Report findings @ -No old charts were reviewed Differential Diagnosis (chest pain, altered mental status, abdominal pain women, abdominal pain men, vaginal bleeding, weakness, fever, dyspnea, syncope, headache, dizziness, GI bleed, back pain, seizure, CVA, palpatations, mental health, musculoskeletal)? @ -Urinary tract infection, kidney stone, bladder carcinoma, BPH, glomerulonephritis, STD EKG interpreted by me (3pts min.). @ -None X-rays interpreted by me (1pt min.). @ -None done CT interpreted by me (1pt min.). @ -CT abdomen pelvis reveals under distended urinary bladder with circumferential wall thickening, left lower lobe patchy groundglass and consolidative opacities U/S interpreted by me (1pt. min.). @ -None done What testing was considered but not performed or refused? (CT, X-rays, U/S, labs)? Why? @ -None What meds were considered but not given or refused? Why? @ -Offered STD prophylaxis however patient declines Did you discuss the management of the patient with other professionals (professionals i.e. , PA, ADDRESSOGRAPH OPERATOR, lab, RT, psych nurse, social contact worker, rice drier operator, teacher, information assurance officer, director case)? Give summary @ -No Was smoking cessation discussed for >3mins.? @ -No Was critical care preformed (if so, how long)? @ -No Were there social determinants of health that impacted care today? How? (Homelessness, low income, unemployed, alcoholism, drug addiction, transportation, low edu. Level, literacy, decrease access to med. care, care home, rehab)? @ -No Was there de-escalation of care discussed even if they declined (Discuss DNR or withdrawal of care, Hospice)? DNR status @ -No What co-morbidities impacted this encounter? (DM, HTN, Smoking, COPD, CAD, Cancer, CVA, ARF, Chemo, Hep., AIDS, mental health diagnosis, sleep apnea, morbid obesity)? @ -None Was patient admitted / discharged? Hospital course, mention meds given and route, prescriptions, significant lab abnormalities, going to OR and other p ertinent info. @ -Discharged. This is a 38-year-old male presenting with hematuria x 2 days with lower abdominal pain. Vital signs within acceptable limits. Declined examination. Abdomen is soft and nontender. Patient was given one-time dose of Toradol. Lab work remarkable for elevated creatinine at 1.49, BUN 24. Urinalysis reveals 37 red blood cells, 41 white blood cells. Urine chlamydia and gonorrhea sent. CT reveals under distended urinary bladder with circumferential wall thickening and incidental lower lobe patchy groundglass and consolidative opacities. Discussed findings with patient. I offered STD prophylaxis however patient declines as he states he has been with 1 female partner for the last decade. Discussed complicated UTI with patient. Antibiotics were sent to pharmacy. Appropriate return precautions and follow-up care discussed with patient. Case was discussed with my ED attending Dr. Bradley. Undiagnosed new problem with uncertain prognosis? @ -No Drug Therapy requiring intensive monitoring for toxicity (Heparin, Nitro, Insulin, Cardizem)? @ -No Were any procedures done? @ -No Diagnosis/symptom? @ -Complicated UTI Acute, or Chronic, or Acute on Chronic? @ -Acute Uncomplicated (without systemic symptoms) or Complicated (systemic symptoms)? @ -Complicated Side effects of treatment? @ -No Exacerbation, Progression, or Severe Exacerbation? @ -No Poses a threat to life or bodily function? How? (Chest pain, [place], [place], pneumonia, PE, COPD, DKA, ARF, appy, cholecystitis, CVA, Diverticulitis, Homicidal, Suicidal, threat to staff... and all critical care pts) @ -Not at this time - Lab Data Result diagrams: 09/13/24 13:22 09/13/24 13:22 Lab Results 09/13/24 09/13/24 09/13/24 Range/Units 13:22 13:22 13:22 WBC 10.2 (3.8-10.6) k/uL RBC 4.53 (4.30-5.90) m/uL Hgb 14.6 (13.0-17.5) gm/dL Hct 42.3 (39.0-53.0) % MCV 93.4 (80.0-100.0) fL MCH 32.2 (25.0-35.0) pg MCHC 34.4 (31.0-37.0) g/dL RDW 11.7 (11.5-15.5) % Plt Count 292 (150-450) k/uL MPV 6.6 Neutrophils % 73 % Lymphocytes % 14 % Monocytes % 8 % Eosinophils % 1 % Basophils % 0 % Neutrophils # 7.4 (1.3-7.7) k/uL Lymphocytes # 1.4 (1.0-4.8) k/uL Monocytes # 0.9 (0-1.0) k/uL Eosinophils # 0.1 (0-0.7) k/uL Basophils # 0.0 (0-0.2) k/uL Sodium 137 (137-145) mmol/L Potassium 4.4 (3.5-5.1) mmol/L Chloride 103 (98-107) mmol/L Carbon Dioxide 25 (22-30) mmol/L Anion Gap 9 mmol/L BUN 24 H (9-20) mg/dL Creatinine 1.49 H (0.66-1.25) mg/dL Est GFR (CKD-EPI)AfAm 69 (>60 ml/min/1.73 sqM) Est GFR (CKD-EPI)NonAf 59 (>60 ml/min/1.73 sqM) Glucose 107 H (74-99) mg/dL Plasma Lactic Acid Lopez (0.7-2.0) mmol/L Calcium 9.2 (8.4-10.2) mg/dL Total Bilirubin 0.7 (0.2-1.3) mg/dL AST 22 (17-59) U/L ALT 17 (4-49) U/L Alkaline Phosphatase 98 (38-126) U/L Total Protein 7.8 (6.3-8.2) g/dL Albumin 4.3 (3.5-5.0) g/dL Urine Color Dark Brown Urine Appearance Cloudy (Clear) Urine RBC 37 H (0-5) /hpf Urine WBC 41 H (0-5) /hpf Urine WBC Clumps Rare H (None) /hpf Ur Squamous Epith Cells 1 (0-4) /hpf Amorphous Sediment Few H (None) /hpf Urine Mucus Occasional H (None) /hpf 09/13/24 Range/Units 13:22 WBC (3.8-10.6) k/uL RBC (4.30-5.90) m/uL Hgb (13.0-17.5) gm/dL Hct (39.0-53.0) % MCV (80.0-100.0) fL MCH (25.0-35.0) pg MCHC (31.0-37.0) g/dL RDW (11.5-15.5) % Plt Count (150-450) k/uL MPV Neutrophils % % Lymphocytes % % Monocytes % % Eosinophils % % Basophils % % Neutrophils # (1.3-7.7) k/uL Lymphocytes # (1.0-4.8) k/uL Monocytes # (0-1.0) k/uL Eosinophils # (0-0.7) k/uL Basophils # (0-0.2) k/uL Sodium (137-145) mmol/L Potassium (3.5-5.1) mmol/L Chloride (98-107) mmol/L Carbon Dioxide (22-30) mmol/L Anion Gap mmol/L BUN (9-20) mg/dL Creatinine (0.66-1.25) mg/dL Est GFR (CKD-EPI)AfAm (>60 ml/min/1.73 sqM) Est GFR (CKD-EPI)NonAf (>60 ml/min/1.73 sqM) Glucose (74-99) mg/dL Plasma Lactic Acid Lopez 1.7 (0.7-2.0) mmol/L Calcium (8.4-10.2) mg/dL Total Bilirubin (0.2-1.3) mg/dL AST (17-59) U/L ALT (4-49) U/L Alkaline Phosphatase (38-126) U/L Total Protein (6.3-8.2) g/dL Albumin (3.5-5.0) g/dL Urine Color Urine Appearance (Clear) Urine RBC (0-5) /hpf Urine WBC (0-5) /hpf Urine WBC Clumps (None) /hpf Ur Squamous Epith Cells (0-4) /hpf Amorphous Sediment (None) /hpf Urine Mucus (None) /hpf Disposition Clinical Impression: Complicated UTI (urinary tract infection) Disposition: HOME SELF-CARE Condition: Stable Instructions (If sedation given, give patient instructions): Urinary Tract Infection in Men (ED) Additional Instructions: Take antibiotic as directed. Follow-up with PCP next week as discussed. Please return to the Emergency Department if symptoms worsen or any other concerns. Prescriptions: Cefpodoxime Proxetil [Vantin] 200 mg PO Q12HR 10 Days #20 tab Is patient prescribed a controlled substance at d/c from ED?: No Referrals: [facility],Clinic [Primary Care Provider] - 1-2 days Time of Disposition: 15:41
[2024-09-13] MEDS: KETOROLAC 15 MG/ML 1 ML VIAL IVP STA (13:24)
[2024-09-13] MEDS: SODIUM CHLORIDE 0.9% 1,000 ML IV STA (13:25)
[2024-09-13 13:33] LABS: Basophils % (A) 0 %; Eosinophils # (A) 0.1 k/uL (0-0.7); Eosinophils % (A) 1 %; HCT 42.3 % (39.0-53.0); HGB 14.6 gm/dL (13.0-17.5); Lymphocytes # (A) 1.4 k/uL (1.0-4.8); Lymphocytes % (A) 14 %; MCH 32.2 pg (25.0-35.0); MCHC 34.4 g/dL (31.0-37.0); MCV 93.4 fL (80.0-100.0); Mean Platelet Volume 6.6; Monocytes # (A) 0.9 k/uL (0-1.0); Monocytes % (A) 8 %; Neutrophils # (A) 7.4 k/uL (1.3-7.7); Neutrophils % (A) 73 %; Platelet Count 292 k/uL (150-450); RBC 4.53 m/uL (4.30-5.90); RDW 11.7 % (11.5-15.5); WBC 10.2 k/uL (3.8-10.6)
[2024-09-13 13:42] LABS: Amorphous Sediment,Urine Few /hpf; Mucus,Urine Occasional /hpf; RBC,Urine 37 /hpf (0-5); Squamous Epithelial Cell,Urine 1 /hpf (0-4); WBC,Urine 41 /hpf (0-5)
[2024-09-13 13:43] LABS: Appearance,Urine Cloudy (Clear); Color,Urine Dark Brown
[2024-09-13 13:50] LABS: ALT 17 U/L (4-49); AST 22 U/L (17-59); African American GFR (CKD) 69 (>60 ml/min/1.73 sqM); Albumin 4.3 g/dL (3.5-5.0); Alkaline Phosphatase 98 U/L (38-126); Anion Gap 9 mmol/L; Blood Urea Nitrogen 24 mg/dL (9-20); Calcium 9.2 mg/dL (8.4-10.2); Carbon Dioxide 25 mmol/L (22-30); Chloride 103 mmol/L (98-107); Glucose 107 mg/dL (74-99); Non-African American GFR(CKD) 59 (>60 ml/min/1.73 sqM); Potassium 4.4 mmol/L (3.5-5.1); Sodium 137 mmol/L (137-145); Total Bilirubin 0.7 mg/dL (0.2-1.3); Total Protein 7.8 g/dL (6.3-8.2)
--- NOTE | 2024-09-13 14:52 | CT ---
EXAMINATION TYPE: CT abdomen pelvis w con CT DLP: 2099.8 mGycm, Automated exposure control for dose reduction was used. DATE OF EXAM: 09/13/2024 2:39 PM COMPARISON: CT thoracolumbar spine 06/11/2023, CT abdomen pelvis 03/24/2020 CLINICAL INDICATION:Male, 38 years old with history of abdominal pain with hematuria; ABD PAIN TECHNIQUE: Standard CT of the abdomen and pelvis following the administration of 100 cc of Isovue 3 00 IV contrast material. Coronal and sagittal reformats were performed. FINDINGS: LOWER CHEST: Subsegmental atelectasis within the right lower lobe. Patchy groundglass and consolidati ve opacities within the left lower lobe. ABDOMEN LIVER: Unremarkable GALLBLADDER AND BILE DUCTS: Unremarkable. PANCREAS: Unremarkable. SPLEEN: Unremarkable. ADRENAL GLANDS: Unremarkable. KIDNEYS AND URETERS: No evidence of hydronephrosis or renal calculus. The kidneys enhance symmetrical ly. No ureteral calculus. No perinephric fat stranding. PELVIS BLADDER: Under distended with circumferential wall thickening. No surrounding inflammatory changes. REPRODUCTIVE: Unremarkable. ABDOMEN & PELVIS STOMACH AND BOWEL: Stomach and duodenum are unremarkable. Redundant sigmoid colon. No focal bowel wal l thickening or surrounding inflammatory changes. The appendix is within normal limits. No evidence o f bowel obstruction. PERITONEUM: No evidence of pneumoperitoneum or free fluid. VASCULATURE: No evidence of aortic aneurysm. Pelvic phleboliths. MUSCULOSKELETAL: No acute osseous abnormalities. LYMPH NODES: No evidence for lymphadenopathy. SOFT TISSUE/ABDOMINAL WALL: Small fat filled umbilical hernia. IMPRESSION: 1. Underdistended urinary bladder with circumferential wall thickening. May relate to underdistention versus cystitis. Correlate with urinalysis. 2. Left lower lobe patchy groundglass and consolidative opacities concerning for pneumonia. [facility], , 09/13/2024 2:50 PM
[2024-09-13 16:00] VITALS: BP 108/72; PULSE 86; RESP 16; TEMP 98.4
[2024-09-16 13:45] LABS: C. trachomatis,PCR Negative (Negative); N. gonorrhoeae,PCR Negative (Negative)
== END 2024-09-13 16:00 | disposition home or self-care (01) ==
LOC: EC 11:00
DX: N39.0 Urinary tract infection, site not specified (principal); Z88.8 Allergy status to other drugs, medicaments and biological substances
CPT/HCPCS: 36415; 80053; 83605; 85025; 81001; 87491; 87591; 87086; 74177; 99284; 96374; 96361; J1885; Q9967

== ENCOUNTER 2024-09-15 14:29 | Emergency (ER) | payer OTHER ==
--- NOTE | 2024-09-15 15:02 | ED ---
General Adult HPI - General Stated complaint: Med Refill Time Seen by Provider: 09/15/24 14:39 Source: patient, RN notes reviewed Mode of arrival: ambulatory Limitations: no limitations - History of Present Illness Initial comments: 38-year-old male presents emergency department chief complaint of needing medication refill. Patient states he is out of his gabapentin he [facility] he states its was to come in 2 days. Patient states been out for 2 days. Patient denies any other associated symptoms denies chest pain shortness of breath denies being suicidal homicidal. - Related Data Home Medications Medication Instructions Recorded Confirmed Omeprazole [PriLOSEC] 20 mg PO DAILY 05/14/15 07/16/18 Sertraline [Zoloft] 150 mg PO DAILY 05/14/15 07/16/18 carBAMazepine [Carbatrol] 200 mg PO HS 05/14/15 07/16/18 Gabapentin [Neurontin] 200 mg PO TID 12/23/15 07/16/18 methocarbamoL [Robaxin] 500 mg PO TID 04/21/16 07/16/18 QUEtiapine FUMARATE [SEROquel] 300 mg PO HS 01/18/17 07/16/18 lisinopriL [Zestril] 10 mg PO DAILY 01/18/17 07/16/18 Cholecalciferol [Vitamin D3] 1,000 unit PO BID 07/16/18 07/16/18 Previous Rx's Medication Instructions Recorded Cephalexin [Keflex] 500 mg PO Q6H #28 cap 07/16/18 QUEtiapine FUMARATE [SEROquel] 300 mg PO HS 10 Days #10 tab 03/18/19 QUEtiapine FUMARATE [SEROquel] 300 mg PO HS #5 tab 09/09/20 Sulfamethox-Tmp 800-160Mg [Bactrim 1 each PO Q12HR #10 tab 06/27/22 DS 800-160 mg] carBAMazepine [Carbatrol] 200 mg PO HS #7 cap 11/06/22 Cyclobenzaprine [Flexeril] 10 mg PO TID PRN #15 tab 06/11/23 Cephalexin [Keflex] 500 mg PO Q6HR #28 cap 05/03/24 Cefpodoxime Proxetil [Vantin] 200 mg PO Q12HR 10 Days #20 tab 09/13/24 Gabapentin [Neurontin] 200 mg PO BID 3 Days #18 cap 09/15/24 Allergies Allergy/AdvReac Type Severity Reaction Status Date / Time risperidone AdvReac Unknown Verified 09/13/24 11:23 Review of Systems ROS Statement: Those systems with pertinent positive or pertinent negative responses have been documented in the HPI. ROS Other: All systems not noted in ROS Statement are negative. Past Medical History Past Medical History: Hypertension, Seizure Disorder Additional Past Medical History / Comment(s): TRAUMATIC BRAIN INJURY; "Heart Arrhythmia - skips beats"; Nerve damage - left hand and leg. Tinnitus History of Any Multi-Drug Resistant Organisms: MRSA Date of last positivie culture/infection: 2010 MDRO Source:: RIGHT TOE Past Surgical History: No Surgical Hx Reported Past Psychological History: PTSD Smoking Status: Never smoker Past Alcohol Use History: None Reported Past Drug Use History: Marijuana General Exam General appearance: alert, in no apparent distress Head exam: Present: atraumatic, normocephalic, normal inspection Eye exam: Present: normal appearance, PERRL, EOMI. Absent: scleral icterus, conjunctival injection, periorbital swelling Neck exam: Present: normal inspection. Absent: tenderness, meningismus, lymphadenopathy Respiratory exam: Present: normal lung sounds bilaterally. Absent: respiratory distress, wheezes, rales, rhonchi, stridor Cardiovascular Exam: Present: regular rate, normal rhythm, normal heart sounds. Absent: systolic murmur, diastolic murmur, rubs, gallop, clicks Medical Decision Making - Medical Decision Making Was pt. sent in by a medical professional or institution (, PA, CELL ROOM OPERATOR, urgent care, hospital, or care home...) When possible be specific @ -No Did you speak to anyone other than the patient for history (EMS, parent, family, police, friend...)? What history was obtained from this source @ -No Did you review nursing and triage notes (agree or disagree)? Why? @ -I reviewed and agree with nursing and triage notes Were old charts reviewed (outside hosp., previous admission, EMS record, old EKG, old radiological studies, urgent care reports/EKG's, care home records)? Report findings @ -No old charts were reviewed Differential Diagnosis (chest pain, altered mental status, abdominal pain women, abdominal pain men, vaginal bleeding, weakness, fever, dyspnea, syncope, headache, dizziness, GI bleed, back pain, seizure, CVA, palpatations, mental health, musculoskeletal)? @ -[Medication refill EKG interpreted by me (3pts min.). @None X-rays interpreted by me (1pt min.). @ -None done CT interpreted by me (1pt min.). @ -None done U/S interpreted by me (1pt. min.). @ -None done What testing was considered but not performed or refused? (CT, X-rays, U/S, labs)? Why? @ -None What meds were considered but not given or refused? Why? @ -None Did you discuss the management of the patient with other professionals (professionals i.e. , PA, CELL ROOM OPERATOR, lab, RT, psych nurse, long term care social worker, director of optimization, teacher, ict customer support officer, corrections caseworker)? Give summary @ -No Was smoking cessation discussed for >3mins.? @ -No Was critical care preformed (if so, how long)? @ -No Were there social determinants of health that impacted care today? How? (Homelessness, low income, unemployed, alcoholism, drug addiction, transportation, low edu. Level, literacy, decrease access to med. care, [facility], rehab)? @ -No Was there de-escalation of care discussed even if they declined (Discuss DNR or withdrawal of care, Hospice)? DNR status @ -No What co-morbidities impacted this encounter? (DM, HTN, Smoking, COPD, CAD, Cancer, CVA, ARF, Chemo, Hep., AIDS, mental health diagnosis, sleep apnea, morbid obesity)? @ -None Was patient admitted / discharged? Hospital course, mention meds given and route, prescriptions, significant lab abnormalities, going to OR and other pertinent info. @Discharge patient given 3-day prescription of his gabapentin. He has a mail refill coming. Patient offers no complaints. Undiagnosed new problem with uncertain prognosis? @ -No Drug Therapy requiring intensive monitoring for toxicity (Heparin, Nitro, Insulin, Cardizem)? @ -No Were any procedures done? @ -No Diagnosis/symptom? @ -Medication refill Acute, or Chronic, or Acute on Chronic? @ -Acute Uncomplicated (without systemic symptoms) or Complicated (systemic symptoms)? @ -Uncomplicated Side effects of treatment? @ -No Exacerbation, Progression, or Severe Exacerbation? @ -No Poses a threat to life or bodily function? How? (Chest pain, [place], [place], pneumonia, PE, COPD, DKA, ARF, appy, cholecystitis, CVA, Diverticulitis, Homicidal, Suicidal, threat to staff... and all critical care pts) @ -No Disposition Clinical Impression: Medication refill Disposition: HOME SELF-CARE Condition: Stable Additional Instructions: Please return to the Emergency Department if symptoms worsen or any other concerns. Prescriptions: Gabapentin [Neurontin] 200 mg PO BID 3 Days #18 cap Is patient prescribed a controlled substance at d/c from ED?: No Referrals: [facility],Clinic [Primary Care Provider] - 1-2 days Time of Disposition: 14:55
[2024-09-15 15:41] VITALS: BP 148/89; PULSE 88; RESP 18; TEMP 98.1
== END 2024-09-15 16:01 | disposition home or self-care (01) ==
LOC: EC 14:29
DX: Z76.0 Encounter for issue of repeat prescription (principal); Z88.8 Allergy status to other drugs, medicaments and biological substances
CPT/HCPCS: 99282